=== PATIENT | female | born 1935 | race Caucasian/White ===

== ENCOUNTER 2018-05-18 19:00 | Inpatient (IN) | payer MEDICARE ==
--- OUTSIDE RECORDS SUMMARY | 2018-05-18 20:19 | XMS REPORT ---
:1935 External Reference #:[id number] Author Organization [facility] Address [address] [place] [address] Phone [phone] Care Team Providers Name Role Phone Tino Mi MD Primary Care Physician Unavailable Payers Type Date Identification Numbers Payment Provider Subscriber Health Maintenance Effective: Policy Number: Medicare [facility] ([facility]) 10/31/2012 [id number] [facility] Group Number: [id number] [address] [address] PayID: [id number] [place] [address] Problems Date Description Provider Status Onset: 01/14/2014 Palpitations Dylan Pantoja M.D., [facility], Active FASJANICE Onset: 01/14/2014 Atrial fibrillation Dylan Pnatoja M.D., [facility], Active FASNC Onset: 05/08/2018 Chronic atrial fibrillation Dylan Pantoja M.D., [facility], Active FASNC Onset: 03/07/2017 Chest pain Dylan Pantoja M.D., [facility], Active FASNC Social History Type Date Description Comments Marital Status Single Lives With Alone Occupation [employer] Cigarette Use Never Smoked Cigarettes ETOH Use Denies alcohol use Smoking Patient has never smoked Recreational Drug Use Denies Drug Use Daily Caffeine Does Not Consume Caffeine Exercise Type/Frequency Does not exercise General Hx Text Follow special diet: No redmeat Problems snoring , daytime fatigue: yes fatigue during the day some days. Allergies, Adverse Reactions, Alerts Date Description Reaction Status Severity Comments 01/14/2014 Sulfa Antibiotics active 01/14/2014 Liver vomiting active Medications Medication Date Status Form Strength Qnty SIG Indications Ordering Provider Metoprolol Active Tablets ER 100mg 90tabs 1 by Dylan Ngo Succinate ER 015 24HR mouth Pantoja, every day M.D., FACC, MALENANC Xarelto Active Tablets 20mg 90tabs 1 by Dylan Ngo 013 mouth Pantoja, every day M.D., FAC, FASJANICE Proventil HFA Active Aerosol 108(90Base 6.700g 2 puffs Unknown 000 ) mcg/Act m prn Metoprolol Hx Tablets ER 100mg 90tabs 1 by Dylan Ngo Succinate ER 014 - 24HR mouth Pantoja, every day M.D., 015 along FACC, with a FASNC 25mg tab Metoprolol Hx Tablets ER 25mg 90tabs 1 by Dylan Ngo Succinate ER 014 - 24HR mouth Pantoja, every day M.D., 015 along FACC, with a FASNC 100mg tab Pradaxa Hx Capsules 150mg 180cap 1 cap by Dylan Ngo 013 - s mouth Pantoja, twice a M.D., 013 day FACC, FASNC Metoprolol Hx Tablets ER 50mg 225tab take 2 Dylan Ngo Succinate ER 012 - 24HR s and 11/01 Kit, tablets M.D., 014 by mouth FACC, daily FASNC Metoprolol Hx Tablets ER 100mg 90tabs 1 po qd Dylan Ngo Succinate ER 012 - 24HR Kit, M.D., 012 FAC, FASNC Klor-Con M20 Hx Tablets ER 20Meq 60tabs 2 po qd Dylan Ngo 012 - Pantoja, M.D., 014 [facility], [facility] Medications Administered in Office Medication Date Status Form Strength Qnty SIG Indications Ordering Provider Inj, 04/07/ Administered Injection Leroy D. Regadenoson, 0.1 2016 Brand, MG M.D. Technetium TC 04/07/ Administered Injection Leroy Pagan 99M Tetrofosmin, 2017 Brand, Per Unit Dose Up M.D. To 40 Millicuries Technetium TC 04/04/ Administered Injection Dylan Ngo 99M Tetrofosmin, 2016 Kit, Per Unit Dose Up M.D., To 40 FACC, Yareliuries FASNC Inj, 05/27/ Administered Injection Dylan Ngo Regadenoson, 0.1 2014 Kit MG M.D., FACC, FASNC Inj, 05/27/ Administered Injection Ines Regadenoson, 0.1 2014 MG Eboni Friend.DTerri Aminophylline 05/27/ Administered Injection Ines 2014 Winifred Friend Technetium TC 05/27/ Administered Injection Dylan Ngo 99M Tetrofosmin, 2014 Kit, Per Unit Dose Up M.D., To 40 FACC, Frankieicuries MALENANC Technetium TC 05/26/ Administered Injection Dylan Ngo 99M Tetrofosmin, 2014 Kit, Per Unit Dose Up M.D., To 40 FACC, Yareliurifabby GUYNC Technetium TC 11/27/ Administered Injection Dylan Ngo 99M Tetrofosmin, 2012 Kit, Per Unit Dose Up M.D., To 40 FACC, Frankieicuries FASNC Vital Signs Date Vital Result Comment 05/08/2018 Height 63.5 inches 5'3.50" Weight 200.00 lb with shoes Heart Rate 80 /min BP Systolic Sitting 94 mmHg lue lg cuff BP Diastolic Sitting 52 mmHg lue lg cuff BP Systolic Standing 94 mmHg BP Diastolic Standing 52 mmHg Respiratory Rate 18 /min BMI (Body Mass Index) 34.9 kg/m2 Ejection Fraction 55-60% 03/29/2017 echo 04/12/2017 Height 63.5 inches 5'3.50" Weight 203.00 lb with shoes Heart Rate 92 /min BP Systolic Sitting 106 mmHg Rue large cuff BP Diastolic Sitting 62 mmHg Rue large cuff BP Systolic Standing 110 mmHg Rue BP Diastolic Standing 68 mmHg Rue BMI (Body Mass Index) 35.4 kg/m2 03/07/2017 Height 63.25 inches 5'3.25" Weight 203.50 lb with shoes Heart Rate 88 /min BP Systolic Sitting 102 mmHg Rue reg cuff BP Diastolic Sitting 62 mmHg Rue reg cuff BP Systolic Standing 108 mmHg Rue reg cuff BP Diastolic Standing 64 mmHg Rue reg cuff Respiratory Rate 17 /min BMI (Body Mass Index) 35.8 kg/m2 Ejection Fraction 50-55% 02/02/2016-echo 02/09/2016 Height 63.25 inches 5'3.25" Weight 205.00 lb with shoes BP Systolic Sitting 110 mmHg LA reg cuff BP Diastolic Sitting 66 mmHg LA reg cuff BP Systolic Standing 124 mmHg LA reg cuff BP Diastolic Standing 66 mmHg LA reg cuff BMI (Body Mass Index) 36.0 kg/m2 Ejection Fraction 50-55% date 02/02/16 ECHO 05/28/2015 Height 63.25 inches 5'3.25" Weight 201.00 lb with shoes Heart Rate 90 /min irreg BP Systolic Sitting 110 mmHg Ra reg cuff BP Diastolic Sitting 60 mmHg Ra reg cuff BP Systolic Standing 110 mmHg Ra reg cuff BP Diastolic Standing 70 mmHg Ra reg cuff Respiratory Rate 17 /min BMI (Body Mass Index) 35.3 kg/m2 Ejection Fraction 50-55% date 02/11/15 ECHO 01/13/2015 Height 63.25 inches 5'3.25" Weight 204.31 lb with shoes Heart Rate 104 /min BP Systolic Sitting 110 mmHg LA BP Diastolic Sitting 76 mmHg LA BP Systolic Standing 108 mmHg LA BP Diastolic Standing 70 mmHg LA Respiratory Rate 16 /min BMI (Body Mass Index) 35.9 kg/m2 01/14/2014 Height 64.25 inches 5'4.25" Weight 207.50 lb with shoes Heart Rate 56 /min BP Systolic Sitting 110 mmHg Ra reg cuff BP Diastolic Sitting 52 mmHg Ra reg cuff BP Systolic Standing 100 mmHg Ra reg cuff BP Diastolic Standing 60 mmHg Ra reg cuff Respiratory Rate 16 /min BMI (Body Mass Index) 35.3 kg/m2 Results Description No Information Procedures Date CPT Code Description Status 05/08/2018 91728 EKG Tracing & Interpretation Completed 04/07/2017 14255 Stress Test Completed 04/07/2017 95650 Myocardial Perfusion Imaging Tomographic (Spect) Completed Multiple Studies 03/29/2017 28695 ECHO Transthoracic, Real-Time 2D With Doppler And Color Completed Flow 03/07/2017 67895 EKG Tracing & Interpretation Completed 02/09/2016 76806 EKG Tracing & Interpretation Completed 02/02/2016 21053 ECHO Transthoracic, Real-Time 2D With Doppler And Color Completed Flow 05/27/2015 05622 Stress Test Completed 05/27/2015 67002 Myocardial Perfusion Imaging Tomographic (Spect) Completed Multiple Studies 05/27/2015 50470 Myocardial Perfusion Imaging Tomographic (Spect) Completed Multiple Studies 02/11/2015 66173 ECHO Transthoracic, Real-Time 2D With Doppler And Color Completed Flow 01/23/2015 34912 Holter Monitoring 24 HR New Completed 01/13/2015 69858 EKG Tracing & Interpretation Completed 12/03/2013 58520 ECHO Transthoracic, Real-Time 2D With Doppler And Color Completed Flow 11/27/2012 83787 Stress Test Completed 11/27/2012 94299 Myocardial Perfusion Imaging Tomographic (Spect) Completed Multiple Studies 11/21/2012 85440 Carotid Doppler,Bilateral Completed 09/19/2012 20818 EKG Tracing & Interpretation Completed 09/04/2012 26867 EKG, Interpretation Only Completed 09/04/2012 25126 EKG, Interpretation Only Completed Encounters Type Date Location Provider CPT E/M Dx Office Visit 05/08/2018 [facility] Ngo Apntoja, 54375 I48.2 1:00p Max Vitale, JUANIS, SEVERO Office Visit 04/12/2017 [facility] Dylan Ngo Pantoja, 80586 R07.9 2:15p Max Vitale, JUANIS, [facility] I48.2 Office Visit 03/07/2017 11:15a [facility] Dylanjena Ngo Pantoja, 80425 R07.9 Courtroom Clerk Winifred, FACAntolin, [facility] I48.2 Office Visit 02/09/2016 11:30a [facility] Dylan Ngo Pantoja, 28565 I48.91 Courtroom Clerk Winifred[facility] 05/28/2015 11:15a [facility] Dylan Ngo Pantoja, 94377 427.31 Max Vitale, [facility]olin, [facility] Visit 01/13/2015 1:00p [facility] Dylan Huber Pantoja, 33451 427.31 Courtroom Clerk Winifred, [facility]ACC, [facility] Office Visit 09/17/2014 2:19p [facility], Cailin Arenas, 03633 780.4 Hospitalists M.Latasha 386.12 427.31 Office Visit 09/15/2014 2:18p [facility], Cailin Arenas, 64503 780.4 Hospitalists M.DTerri 386.12 427.31 Office Visit 01/14/2014 11:30a [facility] Dylanjena Pantoja, 70824 785.1 Max Vitale, FACAntolin, [facility] 427.31 Office Visit 06/04/2013 11:15a [facility] Dylan Pantoja, 81477 427.81 Courtroom Clerk Winifred, FAC, FASFL Office Visit 12/04/2012 3:00p [facility] Dylan Pantoja, 07882 427.31 Courtroom Clerk Winifred, FAC, FASFL Office Visit 11/02/2012 11:30a [facility] Dylan Pantoja, 44685 427.31 Courtroom Clerk Winifred, FAC, FASFL Office Visit 09/19/2012 11:30a [facility] Dylan Pantoja, 18508 427.31 Courtroom Clerk Winifred, FAC, [facility] Office Visit 09/04/2012 9:58a [facility] Jorge Felix, 23875 427.31 Hospitalists M.DTerri 401.9 Office Visit 09/03/2012 9:55a [facility] Anahi Salinas, 34521 427.31 Assoc, Hospitalists MTerriDTerri 401.9 Office Visit 03/29/2010 2:15a [facility] Yue Molina M.D. 48463 486 Hospitalists 427.31 Office Visit 03/28/2010 1:30a [facility] Yue Molina M.D. 16211 486 Hospitalists 427.31 Office Visit 03/27/2010 2:15a [facility] Cailin Arenas, 33319 486 Hospitalists M.DTerri 427.31 Office Visit 03/26/2010 1:45a [facility] Cailin Arenas, 52315 486 Hospitalists M.DTerri 427.31 Office Visit 03/25/2010 1:00a [facility] Cailin Arenas, 19518 486 Hospitalists M.DTerri 427.31 Office Visit 03/24/2010 1:15a [facility] Anahi Salinas, 17241 427.31 Assoc, Hospitalists M.D. Office Visit 03/24/2010 1:30a [facility] Cailin Arenas, 10179 486 Assoc, Hospitalists M.D. Office Visit 03/23/2010 3:[facility]a [facility], 32803 786.59 Assoc,pc Hospitalists Winifred 486 Plan of Care Future Appointment(s):05/11/2018 11:30 am - Mil Montoya MD at [facility]05/08/2018 - Dylan Pantoja M.D., [facility], ACNWQO37.2 Chronic atrial fibrillationComments:As discussed, I feel your heart is doing well. Please exercise as able.Follow up:one year
--- OUTSIDE RECORDS SUMMARY | 2018-05-18 20:19 | XMS REPORT ---
:1935 External Reference #:[id number] Author Organization [facility] Address [address] [place] [address] Phone [phone] Care Team Providers Name Role Phone Tino Mi MD Care Team Information Bar Turner Unavailable Tino Mi MD Primary Care Physician Unavailable Payers Type Date Identification Numbers Payment Provider Subscriber Commercial Policy Number: [id number] Medicare Blue Ppo Cecy Francis Group Number: [id number] [address] [address] Group Name: [place] [address] PayID: [id number] Problems Date Description Provider Status Onset: 07/31/2011 Skin sensation disturbance Tino Mi M.D. Active Onset: 12/30/2011 Asthma without status asthmaticus Tino Mi M.D. Active Onset: 12/30/2011 Atrial fibrillation Tino Mi M.D. 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 Active Onset: 08/30/2014 Fever Wero Mendiola M.D. Active Onset: 10/22/2014 Osteochondropathy Tino Mi M.D. Active Onset: 10/22/2014 Otolith disease Tino Mi M.D. 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 Active Onset: 11/16/2016 Spontaneous ecchymosis Sterling Hanna M.D. Active Onset: 11/16/2016 Paroxysmal atrial fibrillation Sterling Hanna M.D. Active Onset: 11/16/2016 Abscess of finger Sterling Hanna M.D. Active Onset: 03/22/2017 Persistent atrial fibrillation Tino Mi M.D. Active Onset: 03/22/2017 Disorder of bone Tino Mi M.D. Active Onset: 03/22/2017 Chest pain Tino Mi M.D. Active Onset: 03/22/2017 Inflamed seborrheic keratosis Tino Mi M.D. Active Onset: 03/22/2017 Rosacea Tino Mi M.D. Active Onset: 03/22/2017 Screening for malignant neoplasm of Tino Mi M.D. Active colon Onset: 03/22/2017 Adult health examination Tino Mi M.D. Active Onset: 03/22/2017 Benign paroxysmal positional vertigo Tino Mi M.D. 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, stressful Cigarette Use Never Smoked Cigarettes ETOH Use Denies alcohol use Smoking Patient has never smoked Daily Caffeine Does not consume caffeine Exercise Type/Frequency Does not exercise currently Current Allergies, Adverse Reactions, Alerts Date Description Reaction Status Severity Comments 04/03/2010 Sulfa active 04/03/2010 Liver active 04/03/2010 Cigarette Smoke active 03/09/2011 Seasonal active Medications Medication Date Status Form Strength Qnty SIG Indications Ordering Provider Tramadol HCL 05/16 Active Tablets 50mg 30tab 1-2 by mouth s every 6 [place], hours as Afnp-C needed for pain Handicap 10/31 Active needed due Tino Looney Parking Permit to: Shmuel arthritis M.D. Metoprolol 12/29 Active Tablets 100mg 1 po qd Family Succinate ER [facility] Oxygen Therapy 05/23 Active 2 liters, Tino F. /2010 prn Winifred Mi Proventil HFA 11/18 Active Aerosol 108(90Bas 6.7un inhale two Tino F. /2010 e) its puffs by Shmuel, mcg/Act mouth every M.D. 4 hours as needed Xarelto Active Tablets 20mg 1 po qd Unknown /0000 Amoxicillin/Cla 02/01 Hx Tablets 875-125mg 14tab 1 by mouth J18.9 Wero bernabe s twice a day Marcie Serrano - 05/16 Risedronate 06/15 Hx Tablets 150mg 4tabs take 1 Tino F. Sodium tablet by Shmuel, - mouth every M.D. Metrogel 03/22 Hx Gel 1% 55gm apply 1 Tino F. application Shmuel, - topically to M.D. 05/16 affected area daily for acne of unknown cause usually in older age groups Phisohex 04/30 Hx Liquid 3% 473un Use Tino F. its Topically as Shmuel, - Needed M.D. 03/10 Handicap 04/05 Hx needed due Tino F. Parking Permit to: Shmuel - arthritis M.D. 06/20 Meclizine HCL 10/02 Hx Tablets 25mg 40tab 1 by mouth s three times Brown, NICK SETTER - a day as 03/22 needed Metronidazole 04/19 Hx Gel 0.75% 1tube apply to 706.1 affected Brown, NICK SETTER - facial areas 08/30 daily after washing face Microlet 2 03/02 Hx 1Box for glucose Tracie Lancets testing qd Osvaldo, - Afnp-C 07/04 Glucose Test 03/02 Hx 1Box for checking Tracie Strips blood Osvaldo, Contour - glucose qd Afnp-C 11/07 Metoprolol 03/09 Hx Tablets 50mg 30tab 1 po qd Tino F. Succinate ER ER 24HR s Nelia Mi M.D. 12/29 Levaquin 11/18 Hx Tablets 500mg 7tabs 1 po qd x 7 466.0 days Gabriella - Afnp-C 11/25 Tessalon 11/18 Hx Capsules 200mg 30cap 1 tid prn 466.0 s cough Gabriella, - Afnp-C 11/25 Phisohex 04/17 Hx Liquid 3% 473ml use Tino FTerri /2009 topically Shmuel - marissa M.DTerri 08/30 Levaquin 04/03 Hx Tablets 500mg 7tabs 1 po qd x 7 482.9 days Kavitha, - [employer] 04/10 Metoprolol Hx Tablets 50mg 30tab 1 po qd Unknown Succinate /0000 ER 24HR s - 03/09 Warfarin Sodium Hx Tablets 2mg 100ta take as Tino F. /0000 Nelia Iniguez M.D. 11/18 Aspirin Hx Tablets 81mg 90tab 1 po qd Tino F. /0000 Nelia Angeles M.D. 11/07 Pradaxa 00 Hx Capsules take 1 Unknown /0000 capsule by - mouth 2 01/15 times a day /2013 Metoprolol 00 Hx Tablets 25mg 1 po qd Family Succinate ER / ER [facility] Immunizations CPT Code Status Date Vaccine Lot # [id number] Given 03/11/2011 Tdap Tetanus, W Pertussis Vital Signs Date Vital Result Comment 05/16/2018 BP Systolic 110 mmHg BP Diastolic 62 mmHg Heart Rate 90 /min Body Temperature 98.0 F Respiratory Rate 17 /min Height 61.5 inches 5'1.50" Weight 197.00 lb BMI (Body Mass Index) 36.6 kg/m2 02/01/2018 BP Systolic 138 mmHg BP Diastolic 60 mmHg Heart Rate 108 /min Body Temperature 97.7 F Respiratory Rate 18 /min O2 % BldC Oximetry 96 % Height 61.5 inches 5'1.50" Weight 204.00 lb BMI (Body Mass Index) 37.9 kg/m2 03/22/2017 BP Systolic 102 mmHg BP Diastolic 60 mmHg Heart Rate 76 /min Body Temperature 98.2 F Respiratory Rate 16 /min Height 61.5 inches 5'1.50" Weight 204.00 lb BMI (Body Mass Index) 37.9 kg/m2 11/16/2016 BP Systolic 116 mmHg BP Diastolic 70 mmHg Heart Rate 90 /min Body Temperature 98.6 F Respiratory Rate 16 /min Height 61.5 inches 5'1.50" Weight 208.12 lb BMI (Body Mass Index) 38.7 kg/m2 03/10/2016 BP Systolic 118 mmHg BP Diastolic 62 mmHg Heart Rate 90 /min Body Temperature 98.2 F Respiratory Rate 18 /min O2 % BldC Oximetry 98 % Height 61.5 inches 5'1.50" Weight 204.00 lb BMI (Body Mass Index) 37.9 kg/m2 06/20/2015 BP Systolic 112 mmHg BP Diastolic 52 mmHg Heart Rate 100 /min Irr Body Temperature 98.3 F Height 61.5 inches 5'1.50" Weight 201.00 lb BMI (Body Mass Index) 37.4 kg/m2 10/22/2014 BP Systolic 120 mmHg BP Diastolic 80 mmHg Heart Rate 64 /min Body Temperature 98.2 F Respiratory Rate 18 /min Height 61.5 inches 5'1.50" Weight 205.00 lb BMI (Body Mass Index) 38.1 kg/m2 08/30/2014 BP Systolic 134 mmHg BP Diastolic 80 mmHg Heart Rate 92 /min Body Temperature 99.4 F Respiratory Rate 20 /min O2 % BldC Oximetry 98 % Height 62 inches 5'2" 04/19/2014 BP Systolic 116 mmHg BP Diastolic 60 mmHg Heart Rate 60 /min Body Temperature 97.2 F Respiratory Rate 16 /min Height 62 inches 5'2" Weight 207.38 lb BMI (Body Mass Index) 37.9 kg/m2 01/15/2014 BP Systolic 134 mmHg BP Diastolic 68 mmHg Heart Rate 60 /min Body Temperature 98.0 F Respiratory Rate 18 /min Height 62 inches 5'2" Weight 208.12 lb BMI (Body Mass Index) 38.1 kg/m2 07/04/2013 BP Systolic 126 mmHg BP Diastolic 66 mmHg Heart Rate 60 /min Body Temperature 97.9 F Respiratory Rate 16 /min Height 62 inches 5'2" Weight 205.00 lb BMI (Body Mass Index) 37.5 kg/m2 11/07/2012 BP Systolic 122 mmHg BP Diastolic 82 mmHg Heart Rate 72 /min Body Temperature 98.0 F Height 62 inches 5'2" Weight 201.00 lb BMI (Body Mass Index) 36.8 kg/m2 03/02/2012 BP Systolic 110 mmHg BP Diastolic 72 mmHg Heart Rate 76 /min Body Temperature 98.7 F Height 62 inches 5'2" Weight 206.00 lb BMI (Body Mass Index) 37.7 kg/m2 12/30/2011 BP Systolic 120 mmHg BP Diastolic 54 mmHg Heart Rate 56 /min Body Temperature 98.5 F Height 62 inches 5'2" Weight 206.00 lb BMI (Body Mass Index) 37.7 kg/m2 05/20/2011 BP Systolic 104 mmHg BP Diastolic 60 mmHg Heart Rate 60 /min Height 62 inches 5'2" Weight 200.00 lb BMI (Body Mass Index) 36.6 kg/m2 04/02/2011 BP Systolic 110 mmHg BP Diastolic 70 mmHg Heart Rate 72 /min Respiratory Rate 15 /min Height 62 inches 5'2" Weight 200.00 lb BMI (Body Mass Index) 36.6 kg/m2 03/09/2011 BP Systolic 118 mmHg BP Diastolic 60 mmHg Heart Rate 58 /min Body Temperature 97.9 F Respiratory Rate 20 /min Height 62 inches 5'2" Weight 200.00 lb BMI (Body Mass Index) 36.6 kg/m2 11/18/2010 BP Systolic 126 mmHg BP Diastolic 66 mmHg Heart Rate 76 /min Body Temperature 97.6 F O2 % BldC Oximetry 96 % Height 62 inches 5'2" Weight 199.00 lb BMI (Body Mass Index) 36.4 kg/m2 04/10/2010 BP Systolic 120 mmHg BP Diastolic 58 mmHg Heart Rate 60 /min Body Temperature 98.6 F Respiratory Rate 16 /min Weight 193.00 lb 04/03/2010 BP Systolic 122 mmHg BP Diastolic 54 mmHg Heart Rate 60 /min Body Temperature 98.3 F Respiratory Rate 16 /min Height 62 inches 5'2" Weight 191.00 lb BMI (Body Mass Index) 34.9 kg/m2 Results Test Date Test Result H/L Range Note Comprehensive Metabolic Prof 03/22/2017 Sodium 140 mEq/L 134-149 Potassium 4.6 mEq/L 3.6-5.5 Chloride 100 mEq/L 94-112 Carbon Dioxide 28 mEq/L 21-32 Glucose 135 mg/dL High 70-105 1 BUN 20 mg/dL 6-26 Creatinine 0.8 mg/dL 0.6-1.4 BUN/Creat Ratio 25.0 CALC 8.0-36.0 Calcium 9.7 mg/dL 8.6-10.2 Total Protein 6.9 g/dL 6.4-8.3 Albumin 4.2 g/dL 3.8-5.5 Globulin 2.7 g/dL 2.0-4.8 A/G Ratio 1.6 CALC 0.6-2.3 Alk. Phosphatase 81 U/L 30-110 Alt (SGPT) 16 U/L 7-35 Ast (Sgot) 19 U/L 5-34 Total Bilirubin 0.5 mg/dL 0.2-1.3 GFR Non- >60 ml/min/1.73m^ >=60 GFR >60 ml/min/1.73m^ >=60 Laboratory test finding 03/22/2017 Free T4 0.73 ng/dL Low 0.75-1.54 2 TSH 2.59 mIU/L 0.50-6.00 Lipid Profile 03/22/2017 Cholesterol 189 mg/dL 120-200 Triglycerides 180 mg/dL 30-200 HDL Cholesterol 49 mg/dL 30-85 LDL (Calculated) 104 CALC 0-129 VLDL Cholesterol 36 mg/dL 0-50 HDL Risk Factor 3.9 CALC 0.0-4.4 CBC Electronic (a) 03/22/2017 WBC 7.4 3.6-9.6 RBC 4.48 3.90-5.70 Hemoglobin (Fma/CMC/CTX) 13.9 g/dL 12.1 - 17.2 Hematocrit (Fma/CMC/CTX) 42.0 % 36.1 - 50.3 Platelets 217 10^3/ul 150-400 Lymph% 27.6 % 17.0-48.0 Mixed% 7.4 Neutrophils % 65.0 Mean Corpuscular Vol 94 82.2-97.4 Mean Corpuscular Hemoglobin 31.1 27.6-33.3 Mean Corpuscular Hemo Concen 33.1 32.0-36.0 RDW 13.4 11.6-13.7 Mean Platelet Volume 7.9 5.5-11.0 Basic Metabolic Profile 11/04/2015 Sodium 142 mEq/L 134-149 Potassium 4.5 mEq/L 3.6-5.5 Chloride 100 mEq/L 94-112 Carbon Dioxide 31 mEq/L 21-32 Glucose 122 mg/dL High 70-105 BUN 17 mg/dL 6-26 Creatinine 0.9 mg/dL 0.6-1.4 BUN/Creat Ratio 18.9 CALC 8.0-36.0 Calcium 9.7 mg/dL 8.6-10.2 GFR Non- >60 ml/min/1.73m^ >=60 GFR >60 ml/min/1.73m^ >=60 Laboratory test finding 10/22/2014 Vitamin D25 16 Low 30-100 Lipid Profile 10/22/2014 Cholesterol 176 mg/dL 120-200 Triglycerides 133 mg/dL 30-200 HDL Cholesterol 48 mg/dL 30-85 LDL (Calculated) 101 CALC 0-129 VLDL Cholesterol 27 mg/dL 0-50 HDL Risk Factor 3.7 CALC 0.0-4.4 Laboratory test finding 10/22/2014 Free T4 0.84 ng/dL 0.75-1.54 Ua - Non Micro (Fma) 10/22/2014 Appearance CLEAR Color YELLOW Glucose, Urine (Fma/CMC/CTX) NEG Bilirubin NEG Ketones NEG SP Grav 1.025 Blood NEG PH 6.0 Protein NEG Urobil 0.2 Nitrite NEG Leukocytes (Fma/CMC/Centrex) NEG CBC Auto Diff 09/15/2014 White Blood Count 7.3 10^3/uL 4.8-10.8 Red Blood Count 4.61 10^6/uL 4.0-5.4 Hemoglobin 13.8 g/dL 12.0-16.0 Hematocrit 43 % 35-47 Mean Corpuscular Volume 93 fL 80-97 Mean Corpuscular Hemoglobin 30 pg 27-31 Mean Corpuscular HGB Conc 32 g/dL 31-36 Red Cell Distribution Width 13 % 10.5-15 Platelet Count 204 10^3/uL 150-450 Mean Platelet Volume 9 um3 7.4-10.4 Abs Neutrophils 4.7 10^3/uL 1.5-7.7 Abs Lymphocytes 1.9 10^3/uL 1.0-4.8 Abs Monocytes 0.6 10^3/uL 0-0.8 Abs Eosinophils 0.1 10^3/uL 0-0.6 Abs Basophils 0.1 10^3/uL 0-0.2 Abs Nucleated RBC 0 10^3/uL Granulocyte % 63.9 % 38-83 Lymphocyte % 25.4 % 25-47 Monocyte % 8.3 % 1-9 Eosinophil % 1.5 % 0-6 Basophil % 0.9 % 0-2 Nucleated Red Blood Cells % 0.1 Comp Metabolic Panel 09/15/2014 Sodium 138 mmol/L 133-145 Potassium 3.9 mmol/L 3.5-5.0 3 Chloride 103 mmol/L 101-111 Co2 Carbon Dioxide 26 mmol/L 22-32 Anion Gap 9 mmol/L 2-11 Glucose 174 mg/dL High 70-100 Blood Urea Nitrogen 12 mg/dL 6-24 Creatinine 0.84 mg/dL 0.51-0.95 BUN/Creatinine Ratio 14.3 8-20 Calcium 9.2 mg/dL 8.6-10.3 Total Protein 7.0 g/dL 6.4-8.9 Albumin 3.7 g/dL 3.2-5.2 Globulin 3.3 g/dL 2-4 Albumin/Globulin Ratio 1.1 1-3 Total Bilirubin 0.80 mg/dL 0.2-1.0 Alkaline Phosphatase 68 U/L 34-104 Alt 10 U/L 7-52 Ast 16 U/L 13-39 Egfr Non- 65.1 >60 Egfr 83.7 >60 4 Laboratory test finding 09/15/2014 Magnesium 2.0 mg/dL 1.9-2.7 Troponin I 0.00 ng/mL <0.03 5 TSH (Thyroid Stimulating Horm) 2.40 IU/mL 0.34-5.60 Inr/Protime 09/15/2014 Inr 1.24 High 0.85-1.06 Laboratory test finding 09/15/2014 Activated Partial 31.2 seconds 24.0- 36.1 Thrombo Time Basic Metabolic Profile 06/15/2014 Sodium 136 mEq/L 134-149 Potassium 4.1 mEq/L 3.6-5.5 Chloride 100 mEq/L 94-112 Carbon Dioxide 27 mEq/L 21-32 Glucose 149 mg/dL High 70-105 BUN 14 mg/dL 6-26 Creatinine 0.8 mg/dL 0.6-1.4 BUN/Creat Ratio 17.5 CALC 8.0-36.0 Calcium 9.4 mg/dL 8.6-10.2 CBC Electronic (Fma) 06/15/2014 WBC 6.3 3.6-9.6 RBC 4.68 3.90-5.70 Hemoglobin (Fma/CMC/CTX) 13.9 g/dL 12.1 - 17.2 Hematocrit (Fma/CMC/CTX) 43.0 % 36.1 - 50.3 Platelets 190 10^3/ul 150-400 Lymph% 29.3 % 17.0-48.0 Mixed% 5.4 Neutrophils % 65.3 Mean Corpuscular Vol 92 82.2-97.4 Mean Corpuscular Hemoglobin 29.8 27.6-33.3 Mean Corpuscular Hemo Concen 32.4 32.0-36.0 RDW 13.7 11.6-13.7 Mean Platelet Volume 7.3 5.5-11.0 Complete Blood Count 01/15/2014 WBC 5.3 x10^3/UL 3.6-9.6 RBC 4.29 x10^6/UL 3.90-5.70 HGB 12.8 g/dL 12.1-17.2 HCT 39 % 36-50 MCV 92.0 fL 82.2-97.4 MCH 29.8 pg 27.6-33.3 MCHC 32.5 g/dL Low 33.0-35.5 RDW 11.9 % 11.6-13.7 PLT 206 x10^3/UL 150-400 MPV 8.8 fL 7.4-10.4 Gran # 3.7 x10^3/UL 1.5-7.2 Lymph# 1.3 x10^3/UL 0.7-4.9 [place]# 0.3 x10^3/UL 0.1-0.9 Gran % 68.6 % 42.2-75.2 Lymph % 24.7 % 20.5-51.1 [place]% 6.7 % 1.7-9.3 Comprehensive Metabolic Prof 11/07/2012 Albumin 4.7 g/dL 3.8-5.5 Alk. Phos. 78 U/L 30-110 Alt (SGPT) 11 U/L 7-35 Ast (Sgot) 21 U/L 5-34 BUN 15 mg/dL 6-26 Calcium 9.0 mg/dL 8.6-10.2 Chloride 102 mEq/L 94-112 Creatinine 0.8 mg/dL 0.6-1.4 Carbon Dioxide 25 mEq/L 21-32 Glucose 153 mg/dL High 70-105 6 Sodium 138 mEq/L 134-149 Total Bilirubin 0.3 mg/dL 0.2-1.3 Total Protein 7.2 g/dL 6.3-8.1 Potassium 3.6 mEq/L 3.6-5.5 Globulin 2.6 g/dL 2.0-4.8 A/G Ratio 1.8 Calc 0.6-2.3 BUN/Creat Ratio 19.3 Calc 8.0-36.0 Laboratory test finding 11/07/2012 Free T4 0.82 ng/dL 0.75-1.54 TSH 2.10 mIU/L 0.50-6.00 Magnesium 2.0 mEq/L 1.2-2.1 CBC Electronic ([facility]) 11/07/2012 WBC 7.3 3.6-9.6 RBC 4.66 3.90-5.70 Hemoglobin (Fma/CMC/CTX) 13.9 g/dL 12.1 - 17.2 Hematocrit (a/CMC/CTX) 42.5 % 36.1 - 50.3 Platelets 238 10^3/ul 150-400 Lymph% 26.6 20.5-51.1 Mixed% 6.0 Neutrophils % 67.4 Mean Corpuscular Vol 91 82.2-97.4 Mean Corpuscular Hemoglobin 29.8 27.6-33.3 Mean Corpuscular Hemo Concen 32.6 32.0-36.0 RDW 13.4 11.6-13.7 Mean Platelet Volume 7.4 6.5-11.0 CBC Auto Diff 09/03/2012 White Blood Count 8.2 10^3/uL 4.8-10.8 Red Blood Count 4.59 10^6/uL 4.0-5.4 Hemoglobin 14.5 g/dL 12.0-16.0 Hematocrit 42 % 35-47 Mean Corpuscular Volume 92 fL 80-97 Mean Corpuscular Hemoglobin 32 pg High 27-31 Mean Corpuscular HGB Conc 34 g/dL 31-36 Red Cell Distribution Width 13 % 10.5-15 Platelet Count 209 10^3/uL 150-450 Mean Platelet Volume 9 um3 7.4-10.4 Abs Neutrophils 4.8 10^3/uL 1.5-7.7 Abs Lymphocytes 2.4 10^3/uL 1.0-4.8 Abs Monocytes 0.7 10^3/uL 0-0.8 Abs Eosinophils 0.2 10^3/uL 0-0.6 Abs Basophils 0.1 10^3/uL 0-0.2 Abs Nucleated RBC 0 10^3/uL Granulocyte % 58.3 % 38-83 Lymphocyte % 29.2 % 25-47 Monocyte % 9.0 % 1-9 Eosinophil % 2.8 % 0-6 Basophil % 0.7 % 0-2 Nucleated Red Blood Cells % 0 Inr/Protime 09/03/2012 Inr 0.86 0.82-1.17 7 Laboratory test finding 09/03/2012 Activated Partial 30.7 Sec 22.18- 37.18 8 Thrombo Time Comp Metabolic Panel 09/03/2012 Sodium 138 mmol/L 133-145 Potassium 3.6 mmol/L 3.5-5.0 Chloride 104 mmol/L 101-111 Co2 Carbon Dioxide 27.0 mmol/L 22-32 Anion Gap 7.0 mmol/L 2-11 Glucose 182 mg/dL High 70-100 Blood Urea Nitrogen 15 mg/dL 6-24 Creatinine 0.70 mg/dL 0.50-1.40 BUN/Creatinine Ratio 21.4 High 8-20 Calcium 9.1 mg/dL 8.1-9.9 Total Protein 7.2 GM/DL 6.2-8.1 Albumin 3.8 GM/DL 3.2-5.2 Globulin 3.4 GM/DL 2-4 Albumin/Globulin Ratio 1.1 1-3 Total Bilirubin 0.6 mg/dL 0.1-1.0 9 Alkaline Phosphatase 82 U/L 30-110 Alt 16 U/L 14-54 Ast 25 U/L 12-42 Egfr Non- 80.7 >60 Egfr 103.8 >60 10 Laboratory test finding 09/03/2012 Magnesium 2.1 mg/dL 1.7-2.6 Creatine Kinase 86 U/L 0-200 CKMB 09/03/2012 CKMB In NG/ML 2.6 NG/ML 0.3-4.0 CKMB % 3.0 % 0-9 11 Laboratory test finding 09/03/2012 Troponin I 0 NG/ML 12 TSH (Thyroid Stimulating Horm) 1.99 MIU/ML 0.34-5.60 Comprehensive Metabolic Prof 02/07/2012 Albumin 4.3 g/dL 3.8-5.5 Alk. Phos. 88 U/L 30-110 Alt (SGPT) 13 U/L 7-35 Ast (Sgot) 17 U/L 5-34 BUN 12 mg/dL 6-26 Calcium 9.8 mg/dL 8.6-10.2 Chloride 101 mEq/L 94-112 Creatinine 0.8 mg/dL 0.6-1.4 Carbon Dioxide 24 mEq/L 21-32 Glucose 139 mg/dL High 70-105 13 Sodium 138 mEq/L 134-149 Total Bilirubin 0.6 mg/dL 0.2-1.3 Total Protein 7.0 g/dL 6.3-8.1 Potassium 4.3 mEq/L 3.6-5.5 Globulin 2.7 g/dL 2.0-4.8 A/G Ratio 1.6 Calc 0.6-2.2 BUN/Creat Ratio 14.9 Calc 8.0-36.0 Laboratory test finding 02/07/2012 Free T4 0.81 ng/dL 0.75-1.54 TSH 2.95 mIU/L 0.50-6.00 Lipid Profile 02/07/2012 Cholesterol 198 mg/dL 120-200 HDL 34 mg/dL 30-85 Triglycerides 142 mg/dL 30-200 HDL Risk Factor 5.8 CALC High 0.0-4.0 LDL (Calculated) 135 CALC High 0-129 VLDL (Calculated) 28 mg/dL 0-50 CBC Electronic (a) 02/07/2012 WBC 6.0 3.6-9.6 RBC 4.46 3.90-5.70 Hemoglobin (Fma/CMC/CTX) 13.6 g/dL 12.1 - 17.2 Hematocrit (Fma/CMC/CTX) 40.1 % 36.1 - 50.3 Platelets 228 10^3/ul 150-400 Lymph% 32.5 20.5-51.1 Mixed% 5.6 Neutrophils % 61.9 Mean Corpuscular Vol 90 82.2-97.4 Mean Corpuscular Hemoglobin 30.4 27.6-33.3 Mean Corpuscular Hemo Concen 33.9 32.0-36.0 RDW 11.5 Low 11.6-13.7 Mean Platelet Volume 8.6 6.5-11.0 Ua - Micro ([facility]) 03/25/2011 Appearance CLEAR Color YELLOW Glucose - Bilirubin - Ketones - SP Grav 1.030 Blood - PH 5.5 Protein - Urobil 0.2 Nitrite - Leukocytes (Fma/CMC/Centrex) TRACE Hyaline - /Lpf Granular - /Lpf WBC ([facility],Centrex) 2-3 RBC - Mucus - /Lpf Epith RARE /Lpf Bacteria RARE /Hpf Amorphous - /Lpf Crystals, Fluid (Fma/CMC/CTX) - Z#Comments - Comprehensive Metabolic Prof 03/11/2011 Albumin 4.3 g/dL 3.8-5.5 Alk. Phos. 70 U/L 30-110 Alt (SGPT) 11 U/L 7-35 Ast (Sgot) 17 U/L 5-34 BUN 13 mg/dL 6-26 Calcium 9.4 mg/dL 8.6-10.2 Chloride 98 mEq/L 94-112 Creatinine 0.8 mg/dL 0.6-1.4 Carbon Dioxide 30 mEq/L 21-32 Glucose 122 mg/dL High 70-105 14 Sodium 136 mEq/L 134-149 Total Bilirubin 0.7 mg/dL 0.2-1.3 Total Protein 7.0 g/dL 6.3-8.1 Potassium 4.2 mEq/L 3.6-5.5 Globulin 2.7 g/dL 2.0-4.8 A/G Ratio 1.6 Calc 0.6-2.2 BUN/Creat Ratio 16.2 Calc 8.0-36.0 Laboratory test finding 03/11/2011 Free T4 0.97 ng/dL 0.75-1.54 TSH 2.48 mIU/L 0.50-6.00 Lipid Profile 03/11/2011 Cholesterol 216 mg/dL High 120-200 HDL 48 mg/dL 30-85 Triglycerides 104 mg/dL 30-200 HDL Risk Factor 4.5 CALC High 0.0-4.0 LDL (Calculated) 147 CALC High 0-129 VLDL (Calculated) 21 mg/dL 0-50 CBC Electronic ([facility]) 03/11/2011 WBC 6.2 3.6-9.6 RBC 4.52 3.90-5.70 Hemoglobin (Fma/CMC/CTX) 13.7 g/dL 12.1 - 17.2 Hematocrit (Fma/CMC/CTX) 40.8 % 36.1 - 50.3 Platelets 217 10^3/ul 150-400 Lymph% 28.5 20.5-51.1 Mixed% 9.7 Neutrophils % 61.8 Mean Corpuscular Vol 90 82.2-97.4 Mean Corpuscular Hemoglobin 30.4 27.6-33.3 Mean Corpuscular Hemo Concen 33.6 32.0-36.0 RDW 12.2 11.6-13.7 Mean Platelet Volume 9.0 6.5-11.0 Laboratory test finding 03/11/2011 Testosterone, Serum 23 ng/dL 3-41 Ua - Micro (Fma) 03/09/2011 Appearance cloudy Color dk yellow Glucose - Bilirubin - Ketones trace SP Grav >1.030 Blood large PH 5.0 Protein - Urobil 0.2 Nitrite - Leukocytes (Fma/CMC/Centrex) small Hyaline - /Lpf Granular - /Lpf WBC (Fma,Centrex) 30-40 RBC 10-15 Mucus sm amt /Lpf Epith 2+ /Lpf Bacteria - /Hpf Amorphous - /Lpf Crystals, Fluid (Fma/CMC/CTX) - Laboratory test finding 09/04/2010 Inr (Fma) 2.5 2-3 Laboratory test finding 08/13/2010 Inr (Fma) 2.1 2.0-3.0 Laboratory test finding 07/30/2010 Inr (Fma) 2.1 2-3 Laboratory test finding 07/23/2010 Inr (Fma) 2.9 2.0-3.0 Laboratory test finding 07/16/2010 Inr (Fma) 2.8 2-3 Laboratory test finding 07/10/2010 Inr (Fma) 3.3 High 2-3 Laboratory test finding 07/03/2010 Inr (Fma) 3.4 High 2.0-3.0 Laboratory test finding 06/11/2010 Inr (Fma) 2.2 2-3 Laboratory test finding 05/28/2010 Inr (Fma) 2.2 2-3 Laboratory test finding 05/18/2010 Inr (Fma) 1.7 Low 2.0-3.0 Laboratory test finding 05/08/2010 Inr (Fma) 1.8 Low 2.0-3.0 Laboratory test finding 04/24/2010 Inr (Fma) 2.0 2.0-3.0 Laboratory test finding 04/17/2010 Inr (Fma) 1.8 Low 2.0-3.0 Laboratory test finding 04/10/2010 Inr (Fma) 1.9 Low 2.0-3.0 Laboratory test finding 04/06/2010 Inr (Fma) 1.8 Low 2.0-3.0 Laboratory test finding 04/03/2010 Inr (Fma) 2.2 2.0-3.0 1 NON-FASTING 2 RESULTS VERIFIED BY REPEAT ANALYSIS 3 Potassium reference range changed effective 09/01/14 4 Because ethnic data is not always readily available, this report includes an eGFR for both -Americans and non- Americans. The National Kidney Disease Education Program (NKDEP) does not endorse the use of the MDRD equation for patients that are not between the ages of 18 and 70, are , have extremes of body size, muscle mass, or nutritional status, or are non- or non-. According to the National Kidney Foundation, irrespective of diagnosis, the stage of the disease is based on the level of kidney function: Stage Description GFR(mL/min/1.73 m(2)) 1 Kidney damage with normal or decreased GFR 90 2 Kidney damage with mild decrease in GFR 60-89 3 Moderate decrease in GFR 30-59 4 Severe decrease in GFR 15-29 5 Kidney failure <15 (or dialysis) 5 Reference Range and Interpretation: TnI (ng/mL) Interpretation Less Than 0.03 ng/mL Not supportive of diagnosis of MA 0.03 - 0.50 ng/mL Indeterminate: suggest serial studies if clinically indicated. Greater than 0.5 ng/mL Consistent with diagnosis of MA 6 result tho'd 7 Effective July 31, 2012, in conjunction with the upgrade of the hospital information system, [facility] will release the International Normalized Ratio (INR) only. Patient reports will no longer contain prothrombin time (PT) results in seconds. This allows for consistency in patient evaluation and treatment. The INR was adopted by the World Health Organization (WHO) in 1983 as a standardized system of reporting PT. The Centers for Disease Control (CDC) states that reporting of PT results in INR only is the preferred method. Recommended INR for Patients on Oral Anticoagulants Prophylaxis 2.0 - 3.0 Treatment of thrombosis 2.0 - 3.0 Prevention of embolism 2.0 - 3.0 Prevention of embolism from prosthetic heart valves 2.5 - 3.5 8 Effective August 30, 2012 new APTT reference and therapeutic values have been implemented. 9 A metabolite of Naproxen, O-desmethylnaproxen, has been shown to interfere with the [place] method for measuring total bilirubin. Samples from patients who have taken Naproxen have shown spurious elevation in total bilirubin levels. 10 Because ethnic data is not always readily available, this report includes an eGFR for both -Americans and non- Americans. The National Kidney Disease Education Program (NKDEP) does not endorse the use of the MDRD equation for patients that are not between the ages of 18 and 70, are , have extremes of body size, muscle mass, or nutritional status, or are non- or non-. According to the National Kidney Foundation, irrespective of diagnosis, the stage of the disease is based on the level of kidney function: Stage Description GFR(mL/min/1.73 m(2)) 1 Kidney damage with normal or decreased GFR 90 2 Kidney damage with mild decrease in GFR 60-89 3 Moderate decrease in GFR 30-59 4 Severe decrease in GFR 15-29 5 Kidney failure <15 (or dialysis) 11 Interpretation %CK-MB; < 5% Not supportive of diagnosis of MA 5 - <10% Indeterminate; suggest serial studies 10% or > Consistent with diagnosis of MA 12 Reference Range and Interpretation: TnI (ng/ml) Interpretation Less Than 0.06 ng/mL Not supportive of diagnosis of MA 0.06 - 0.50 ng/ml Indeterminate: suggest serial studies if clinically indicated. Greater than 0.5 ng/mL Consistent with diagnosis of MA 13 CONSISTENT WITH PREVIOUS RESULTS 14 RESULT THO'D Procedures Date CPT Code Description Status 02/01/2018 57731 Pulse Oximetry Completed 04/25/2017 93128 Dxa Bone Density Study One Or More Sites Axial Skeleton Completed 04/21/2017 Mammogram Completed 03/22/2017 93968 Destruction Of Flat Warts Or Molluscum Contagiosum, Completed Milia To 15 03/10/2016 03397 Pulse Oximetry Completed 12/09/2014 Mammogram Completed 10/22/2014 70873 Electrocardiogram Complete Completed 04/21/2012 Mammogram Completed 02/29/2012 Bone Mineral Density Test Completed 03/26/2011 Mammogram Completed 03/09/2011 49478 Electrocardiogram Complete Completed 11/18/2010 43855 Pulse Oximetry Completed 09/04/2010 33853 Finger Or Heel Stick Completed 08/13/2010 21956 Finger Or Heel Stick Completed Encounters Type Date Location Provider CPT E/M Dx Office Visit 02/01/2018 4:30p [place] [address] J18.9 Office Visit 03/22/2017 2:20p Main Office Tino Mi M.D. 73639 I48.1 J45.998 M85.9 Z85.42 R07.89 L82.0 L71.8 Z12.11 H81.10 Z00.00 Office Visit 11/16/2016 8:00p Main Office Sterling Hanna M.D. 87370 R23.3 L02.512 I48.0 Office Visit 03/10/2016 3:30p Main [place] Georgina [place] [address] R05 Office Visit 06/20/2015 4:15p Main Office ANGEL Whitaker 29627 891.0 E917.3 Office Visit 10/22/2014 2:40p Main Office Tino Mi M.D. 87111 427.31 493.90 733.90 386.19 V10.44 790.6 V70.0 Office Visit 08/30/2014 3:00p Main Office Wero Mendiola M.D. 16537 780.60 Office Visit 04/19/2014 9:30a Main Office Georgina [place] [address] 706.1 Office Visit 01/15/2014 10:45a Main Office Janeen James 28424 920 E934.5 924.11 E888.1 Office Visit 07/04/2013 11:30a Main Office ANGEL Whitaker 97417 989.5 E905.3 Office Visit 11/07/2012 2:40p Main Office Tino Mi M.D. 23558 427.31 368.9 493.90 Office Visit 03/02/2012 10:45a Main Office Tracie RileyCris-C 70670 790.21 V65.8 Office Visit 12/30/2011 2:00p Main Office Tino Mi M.D. 39288 493.90 427.31 236.0 V76.41 Office Visit 05/20/2011 11:00a Main Office Tino Mi M.D. 50899 493.90 709.9 Office Visit 04/02/2011 10:40a Main Office Jewell Madrid M.D. 41729 782.0 Office Visit 03/11/2011 10:15a Main Office Tino Mi M.D. 33918 v06.5 915.0 Office Visit 03/09/2011 3:20p Main Office Tino Mi M.D. 48158 493.90 427.31 782.9 794.31 236.0 V72.83 V76.41 784.49 599.72 Office Visit 11/18/2010 9:00a Main Office Nichole QuirozCris-C 30241 466.0 709.9 Office Visit 04/10/2010 10:45a Main Office ANGEL Whitaker 20479 482.9 V58.61 Office Visit 04/03/2010 10:00a Main Office ANGEL Whitaker 01701 V58.61 427.31 482.9 Plan of Care 05/16/2018 - Tracie MejíaCris gallegos-CM54.5 Low back painNew Xrays:Lumbar Spine 2 Or 3 ViewsFollow up:Followup:. (Follow up)AllNew Medication:Tramadol HCL 50 mgComments:~B_~U_Medication Management~b_~u_ Patient Understands medications she 's taking? Yes No Are there Barriers to Adherence? Yes No Has the patient been asked about herbal supplements and therapies, and OTC meds? Yes No ~B_~U_Care Plan~b_~u_1. Patient has been queried about patient's goals/preferences and functional/lifestyle goals at relevant visits. If relevant, describe: na2. Treatment goals as explained to the patient: abovefurther eval and rx of pain 3. Are there barriers to meeting treatment goals? Yes No If Yes, please describe:4. Self-Management goals as described to the patient: Yes No continue conservative management ok for local heat, rest trialtramadol for pain , f/u pending test results
--- NOTE | 2018-05-18 20:21 | ED ---
Dizziness - HPI Summary HPI Summary: 80 y/o male presents to the ED c/o immediate onset R hip pain and swelling s/p fall while walking with a walker hours [employer] today. Pt fell onto her R side onto carpeted floor. No LOC. 6 days ago pt also developed bilateral hip pain radiating down the L leg, rated "25/10 in severity". Since then pain resolved slightly. Pt took a muscle relaxer earlier today and developed dizziness today. - History Of Current Complaint Chief Complaint: EDExtremityLower Stated Complaint: RT HIP PAIN Hx Obtained From: Patient Character: Dizzy Aggravating Factor(s): Nothing Alleviating Factor(s): Nothing Associated Signs And Symptoms: Positive: Other: - bilateral hip pain - Allergies/Home Medications Allergies/Adverse Reactions: Allergies Allergy/AdvReac Type Severity Reaction Status Date / Time Sulfa (Sulfonamide Allergy Unknown Verified 05/18/18 19:59 Antibiotics) Reaction Details liver-organ meat Allergy Unknown Uncoded 05/18/18 19:59 Reaction Details Home Medications: Home Medications Cyclobenzaprine (NF) [Cyclobenzaprine 5 MG (NF)] 5 mg PO BID PRN 05/18/18 [ History Confirmed 05/18/18] Ivermectin [Soolantra] 1 % TOPICAL DAILY 05/18/18 [History Confirmed 05/18/18] Metoprolol Succinate XL TAB* [Toprol XL TAB*] 100 mg PO DAILY 05/18/18 [History Confirmed 05/18/18] Rivaroxaban TAB(*) [Xarelto 20 mg] 20 mg PO DAILY 05/18/18 [History Confirmed ] traMADol TAB* [Ultram*] 50 - 100 mg PO Q6HR PRN MDD 6 per day 05/18/18 [History Confirmed 05/18/18] PMH/Surg Hx/FS Hx/Imm Hx Previously Healthy: No Endocrine/Hematology History: Reports: Hx Anticoagulant Therapy Denies: Hx Diabetes Cardiovascular History: Reports: Hx Hypertension Respiratory History: Reports: Hx Asthma, Hx Pneumonia, Other Respiratory Problems/Disorders - HX OF PNUEMONIA Sensory History: Reports: Hx Cataracts, Hx Contacts or Glasses Opthamlomology History: Reports: Hx Cataracts, Hx Contacts or Glasses - Surgical History Surgery Procedure, Year, and Place: cholecystectomy, hysterectomy Infectious Disease History: No Infectious Disease History: Denies: Traveled Outside the [place] in Last 30 Days - Social History Alcohol Use: None Substance Use Type: Reports: None Smoking Status (MU): Never Smoked Tobacco Review of Systems Constitutional: Negative Eyes: Negative ENT: Negative Cardiovascular: Negative Respiratory: Negative Gastrointestinal: Negative Genitourinary: Negative Musculoskeletal: Other - bilateral hip pain radiating down leg Positive: Edema - R posterior thigh swelling s/p fall Skin: Negative Neurological: Other - dizziness Psychological: Normal All Other Systems Reviewed And Are Negative: Yes Physical Exam - Summary Physical Exam Summary: Appearance: Well-appearing, Well-nourished Skin: Warm Eyes: Normal ENT: Normal Neck: Supple, nontender Respiratory: Clear to auscultation Cardiovascular: Regular rate, regular rhythm. Normal S1, S2. Abdomen: Soft, nontender Musculoskeletal: In the area of the Lesser Trochanter/lower hip there is as 3x5 cm area of swelling. Neurological: Normal, A&Ox3 Psychiatric: Normal General: No acute distress Triage Information Reviewed: Yes Vital Signs On Initial Exam: Initial Vitals Temp Pulse Resp BP Pulse Ox 99.4 F 100 16 139/71 92 05/18/18 19:50 05/18/18 19:50 05/18/18 19:50 05/18/18 19:50 05/18/18 19:50 Vital Signs Reviewed: Yes Diagnostics - Vital Signs Vital Signs Temp Pulse Resp BP Pulse Ox 05/18/18 19:50 99.4 F 100 16 139/71 92 - Laboratory Result Diagrams: 05/19/18 06:19 05/18/18 21:05 Lab Statement: Any lab studies that have been ordered have been reviewed, and results considered in the medical decision making process. - Radiology FEMUR XR Xray Interpretation: No Acute Changes - Negative for fracture dislocation Radiology Interpretation Completed By: ED Physician HIP XR Xray Interpretation: No Acute Changes - Negative for fracture dislocation Radiology Interpretation Completed By: ED Physician - EKG 1 EKG Interpretation: 21:02 - AFIB @ 112, unchanged from 09/15/14 Dizzy Course/Dx - Course Course Of Treatment: All imaging studies were negative for fracture, however, pt is on Xarelto with a new contusion on right hip where there is potential blood loss that may be significant. Pt advised to be admitted overnight for H&H montoring and is admitted under hospitalist service. - Diagnoses Provider Diagnoses: Fall, Contusion of right hip region - Provider Notifications Discussed Care Of Patient With: Ling Uribe Time Discussed With Above Provider: 21:30 Instructed by Provider To: Admit As Inpatient Discharge - Sign-Out/Discharge Documenting (check all that apply): Patient Departure - Discharge Plan Condition: Stable Disposition: ADMITTED TO [facility] - Billing Disposition and Condition Condition: STABLE Disposition: Admitted to [facility]
[2018-05-18 21:20] LABS: ABS Basophils 0.1 10^3/ul (0-0.2); ABS Eosinophils 0.2 10^3/ul (0-0.6); ABS Monocytes 0.6 10^3/ul (0-0.8); ABS Neutrophils 4.1 10^3/ul (1.5-7.7); ABS Nucleated RBC 0 10^3/ul; Eosinophil % 2.6 % (0-6); Hematocrit 41 % (35-47); Hemoglobin 13.7 g/dl (12.0-16.0); Lymphocyte % 28.5 % (25-47); Mean Corpuscular HGB Conc 34 g/dl (31-36); Mean Corpuscular Hemoglobin 31 pg (27-31); Mean Corpuscular Volume 94 fL (80-97); Mean Platelet Volume 9.6 um3 (7.4-10.4); Nucleated Red Blood Cells % 0; Platelet Count 179 10^3/ul (150-450); Red Blood Count 4.38 10^6/ul (4.00-5.40); Red Cell Distribution Width 13 % (10.5-15)
[2018-05-18 21:40] LABS: EGFR Non-African American 75.8 (>60)
[2018-05-18 22:31] LABS: Urine Appearance Clear; Urine Blood Negative (Negative); Urine Color Straw; Urine Ketones Negative (Negative); Urine Protein Negative (Negative); Urine Specific Gravity 1.008 (1.010-1.030); Urine Urobilinogen Negative (Negative)
[2018-05-18] MEDS: Acetaminophen TAB* 325 MG PO PRN (22:46)
[2018-05-18] MEDS ORDERED: LORazepam INJ* 2 MG/ML 1 ML VIAL IV PUSH ONE (23:21)
[2018-05-18] MEDS ORDERED: Albuterol 2.5 MG/3 ML NEB.SOL* (0.083%) INH PRN (23:21)
[2018-05-18] MEDS ORDERED: LORazepam INJ* 2 MG/ML 1 ML VIAL ONE (23:24)
[2018-05-18] MEDS ORDERED: Albuterol 2.5 MG/3 ML NEB.SOL* (0.083%) INH ONE (23:24)
--- NOTE | 2018-05-18 23:29 | HP ---
ADDENDUM NOW INCLUDED ON THIS REPORT CC: Dr. Mi * HISTORY AND PHYSICAL: DATE OF ADMISSION: 05/18/18 PRIMARY CARE PROVIDER: Dr. Mi. NAIL MAKING MACHINE SETTER: Dr. Pantoja. CHIEF COMPLAINT: Fall. HISTORY OF PRESENT ILLNESS: Ms. Francis is an 83-year-old female who has a history of atrial fibrillation, who is on Xarelto chronically, who presents to the emergency room after sustaining a fall at home. The patient states since this past Tuesday she has had back in left leg/hip pain. She states that she took a Flexeril and then worked with a massage therapist having a full body massage and trigger point release. After getting up from her massage and walking for a few steps, she began to feel quite woozy. She then states that despite using the walker, she fell onto her right side. She had a single point that was quite tender on the right side; however, the tenderness on this area at this point is now improved. She has noted some swelling overlying the upper lateral femur. The patient had no loss of consciousness during this event. The patient has never had dizzy spell in the past. The patient states that she has never tried taking the Flexeril in the past and believes that the Flexeril and relaxation from the massage led to her dizziness. PAST MEDICAL HISTORY: 1. Atrial fibrillation. 2. Asthma. PAST SURGICAL HISTORY: 1. Cholecystectomy. 2. EVIN-BSO. MEDICATIONS: 1. Flexeril 5 mg p.o. b.i.d. p.r.n. spasm. 2. Tramadol 50-100 mg p.o. q.6 hours p.r.n. pain. 3. Ivermectin applied topically daily. 4. Doxycycline 50 mg p.o. b.i.d. 5. Xarelto 20 mg p.o. daily. 6. Metoprolol XL 100 mg p.o. daily. ALLERGIES: SULFA. FAMILY HISTORY: Mom at the age of 96. She had a hip fracture at the age of 83 and never got out of the wheelchair. Dad at the age of 80 of an [place]. SOCIAL HISTORY: The patient is a nonsmoker. She does not drink alcohol. She works as a traveling storekeeper. She is not . She has no children. She indicates that Wero Juan is her healthcare proxy. REVIEW OF SYSTEMS: A complete 11-system review of systems is obtained. Pertinent positives and negatives are as per HPI. In addition, the patient does state that she has had some situational depression related to first facial rash followed by the pain in her left leg. PHYSICAL EXAMINATION GENERAL: The patient is a well-developed, elderly female, who appears younger than her stated age, sitting up in the stretcher, in no acute distress. VITAL SIGNS: Blood pressure 139/71, pulse 100, respirations 16, temp 99.4, O2 sat 92% on room air. HEENT: Pupils are equal and round. Extraocular muscles are intact. Oropharynx is clear. Oral mucosa is moist. There is no submandibular, cervical , or supraclavicular adenopathy. Thyroid is not enlarged. No thyroid nodules are noted. CARDIAC: Normal S1, S2. Heart is irregularly irregular and mildly tachycardic. There are no murmurs. She has no lower extremity edema. PULMONARY: Lungs are clear to auscultation anteriorly. ABDOMEN: Bowel sounds present. Abdomen is soft, nontender, nondistended. MUSCULOSKELETAL: There is no cyanosis or clubbing of the digits. There is full active range of motion of the upper extremities. Lower extremity range of motion is not tested at this time due to pain. There is a lemon sized area of swelling overlying the proximal lateral femur on the right. NEURO: Cranial nerves II through XII are grossly intact. Sensation is intact to light touch throughout. Strength is 5/5 and symmetric in the upper extremities. Lower extremity strength is not tested due to pain. PSYCH: The patient is alert. She is oriented x3. Affect appears appropriate. SKIN: Warm and dry. There are no rashes. The patient does have facial rash noted over the nose and the cheeks. DIAGNOSTIC STUDIES/LAB DATA: WBC 7.0, hemoglobin 13.7, hematocrit 41, platelets 179. PTT 37.9. Sodium 138, potassium 3.8, chloride 102, CO2 29, BUN 12, creatinine 0.73, glucose 126, calcium 9.4. Bilirubin 0.6. AST 21, ALT 16, alk phos 58. Troponin 0.01, albumin 3.8. TSH 3.83. EKG reveals atrial fibrillation with a ventricular rate of 112. No acute ST-T wave abnormalities are noted. Chest x-ray and... ADDENDUM: ASSESSMENT AND PLAN: Ms. Francis is an 83-year-old female with a history of atrial fibrillation, on Xarelto, who sustained an episode of dizziness after taking a dose of Flexeril and having a massage on the day of admission where she landed on her right hip. 1. Right hip pain. To my inspection of the x-ray, there is no fracture. We will await the official radiologist's read. The biggest concern is that the patient is on Xarelto. She does have a lump overlying the lateral aspect of the proximal femur on the right. The patient will have a followup CBC obtained tomorrow morning. At this point, her hemoglobin is completely stable. 2. Left hip pain. This has been an issue for the patient since this past Tuesday. The patient states that she is afraid to use Flexeril any further. I have ordered Tylenol and tramadol for pain. The patient will be up with assist and see how she does walking tomorrow and likely she can be discharged to home. 3. Atrial fibrillation. The patient is in rapid atrial fibrillation at this point. She did not take her metoprolol. She states she typically takes it around 5 p.m. This will be given at this point. We will monitor her heart rate on telemetry due to the episode of dizziness; however, I suspect the dizziness truly was related to the Flexeril and just completing massage. 4. DVT prophylaxis. According to the Adult Thrombosis Prophylaxis Risk Factor Assessment Guide, the patient has a total risk factor score of 3 making her high risk. She will be continued on Xarelto as there have been no signs of bleeding at this point. 5. Code status is full. TIME SPENT: 65 minutes were spent admitting this patient of which greater than half was spent [id number] with the patient reviewing her history and performing a physical exam. [id number]/CPS #: [id number]/CPS #: [id number] LESTER
--- NOTE | 2018-05-18 23:38 | HP ---
CC: Dr. Mi HISTORY AND PHYSICAL: ADDENDUM: ASSESSMENT AND PLAN: Ms. Francis is an 83-year-old female with a history of atrial fibrillation, on Xarelto, who sustained an episode of dizziness after taking a dose of Flexeril and having a massage on the day of admission where she landed on her right hip. 1. Right hip pain. To my inspection of the x-ray, there is no fracture. We will await the official radiologist's read. The biggest concern is that the patient is on Xarelto. She does have a lump overlying the lateral aspect of the proximal femur on the right. The patient will have a followup CBC obtained tomorrow morning. At this point, her hemoglobin is completely stable. 2. Left hip pain. This has been an issue for the patient since this past Tuesday. The patient states that she is afraid to use Flexeril any further. I have ordered Tylenol and tramadol for pain. The patient will be up with assist and see how she does walking tomorrow and likely she can be discharged to home. 3. Atrial fibrillation. The patient is in rapid atrial fibrillation at this point. She did not take her metoprolol. She states she typically takes it around 5 p.m. This will be given at this point. We will monitor her heart rate on telemetry due to the episode of dizziness; however, I suspect the dizziness truly was related to the Flexeril and just completing massage. 4. DVT prophylaxis. According to the Adult Thrombosis Prophylaxis Risk Factor Assessment Guide, the patient has a total risk factor score of 3 making her high risk. She will be continued on Xarelto as there have been no signs of bleeding at this point. 5. Code status is full. TIME SPENT: 65 minutes were spent admitting this patient of which greater than half was spent [id number] with the patient reviewing her history and performing a physical exam. [id number]/[facility] #: [id number] LESTER
[2018-05-19] MEDS: Metoprolol Succinate XL TAB* 100 MG PO SCH ×2 (00:26→22:13)
[2018-05-19] MEDS: Acetaminophen TAB* 325 MG PO PRN (04:01)
[2018-05-19 06:58] LABS: Hematocrit 40 % (35-47); Hemoglobin 13.1 g/dl (12.0-16.0); Mean Corpuscular HGB Conc 33 g/dl (31-36); Mean Corpuscular Hemoglobin 31 pg (27-31); Mean Corpuscular Volume 94 fL (80-97); Mean Platelet Volume 9.8 um3 (7.4-10.4); Platelet Count 171 10^3/ul (150-450); Red Blood Count 4.24 10^6/ul (4.00-5.40); Red Cell Distribution Width 13 % (10.5-15); White Blood Count 6.3 10^3/ul (3.5-10.8)
--- NOTE | 2018-05-19 07:46 | RAD ---
HISTORY: fall, bilateral hip pain COMPARISONS: None relevant VIEWS: 15, Frontal view of the pelvis with frontal and frog-leg views of the hips bilaterally with frontal and lateral views of the right femur and of the left femur FINDINGS: Right: BONE DENSITY: There is diffuse osteopenia. BONES: There is no displaced fracture. JOINTS: There is mild osteoarthritis of the right hip. There is moderate osteoarthritis of the right knee. ALIGNMENT: There is no dislocation. The alignment is anatomic. SOFT TISSUES: There is peripheral arterial calcification. Left: BONE DENSITY: There is diffuse osteopenia. BONES: There is no displaced fracture. JOINTS: There is mild osteoarthritis of the left hip. There is moderate osteoarthritis of the left knee. ALIGNMENT: There is no dislocation. The alignment is anatomic. SOFT TISSUES: There is peripheral arterial calcification. OTHER FINDINGS: Degenerative changes are noted of the spine. IMPRESSION: 1. OSTEOPENIA. 2. OSTEOARTHRITIS. 3. PERIPHERAL ARTERIAL DISEASE. 4. NO RADIOGRAPHIC EVIDENCE FOR HIP FRACTURE. X-RAYS MAY BE NEGATIVE WITH NONDISPLACED HIP FRACTURE, IF THERE IS PERSISTENT CLINICAL CONCERN, RECOMMEND CONSIDERATION OF MRI. IN THE SETTING OF CONTRAINDICATION TO MRI OR LIMITATION IN EMERGENT ACCESS TO MRI, CT WOULD BE SUGGESTED. R1
[2018-05-19] MEDS ORDERED: Doxycycline TAB(NF) 50 MG TAB PO SCH (09:00)
[2018-05-19] MEDS: traMADol TAB* 50 MG PO PRN ×3 (09:10→23:48)
[2018-05-19] MEDS: Rivaroxaban TAB(*) 20 MG TAB PO SCH (09:10)
--- NOTE | 2018-05-19 11:28 | PN ---
Subjective Date of Service: 05/19/18 Interval History: Mrs. Francis reports feeling better. Pain is tolerable, still has low back pain, been going on for past week. Has not attempted walking today yet. Right hip "bruise" is a little tender, but not any worse since last night. Tramadol seems to control her pain. She tells me that her PCP has requested an MRI giving her back pain for the past week. She would like to have this done during her admission. Denies lower extremities numbness or weakness. Feels unsteady on her feet for past week or so, have used a cane then a walker for a while at home. She has no new complaints today. Family History: Unchanged from Admission Social History: Unchanged from Admission Past Medical History: Unchanged from Admission Objective Active Medications: Acetaminophen (Tylenol Tab*) 650 mg PO Q4H PRN PRN Reason: PAIN Last Admin: 05/19/18 04:01 Dose: 650 mg Albuterol (Ventolin 2.5 Mg/3 Ml Neb.Desire*) 2.5 mg INH Q4H PRN PRN Reason: SOB/WHEEZING Lorazepam (Ativan Tab(*)) 0.5 mg PO Q6H PRN PRN Reason: ANXIETY Metoprolol Succinate (Toprol Xl Tab*) 100 mg PO 2100 [facility] Last Admin: 05/19/18 00:26 Dose: 100 mg Rivaroxaban (Xarelto(*)) 20 mg PO DAILY [facility] Last Admin: 05/19/18 09:10 Dose: 20 mg Tramadol HCl (Ultram*) 50 mg PO Q6H PRN PRN Reason: PAIN Last Admin: 05/19/18 09:10 Dose: 50 mg Vital Signs - 8 hr 05/19/18 05/19/18 05/19/18 07:46 07:56 08:00 Temperature 97.9 F Pulse Rate 99 Respiratory 18 18 Rate Blood Pressure 133/92 (mmHg) O2 Sat by Pulse 100 Oximetry 05/19/18 05/19/18 09:10 11:08 Temperature Pulse Rate Respiratory 26 16 Rate Blood Pressure (mmHg) O2 Sat by Pulse Oximetry Oxygen Devices in Use Now: Nasal Cannula Appearance: Laying in her bed, appears comfortable and in NAD. Ears/Nose/Mouth/Throat: Clear Oropharnyx, Mucous Membranes Moist Neck: NL Appearance and Movements; NL JVP, Trachea Midline Respiratory: Symmetrical Chest Expansion and Respiratory Effort, Clear to Auscultation Cardiovascular: NL Sounds; No Murmurs; No JVD, - - Irrigular rate and rythem Abdominal: NL Sounds; No Tenderness; No Distention Extremities: No Edema, No Clubbing, Cyanosis, - - Right lateral hip with a moderate size contusion and hematoma, approx 5 cm with minimal tenderness. Very faint surrounding ecchymosis, no erythema. No bony deformity or other lesions noted. Left hip with no ecchymosis or swelling. Neurological: Alert and Oriented x 3, NL Sensation, NL Muscle Strength and Tone Nutrition: Taking PO's Result Diagrams: 05/19/18 06:19 05/18/18 21:05 Additional Lab and Data: . Microbiology and Other Data: . Diagnostic Imaging: Patient Name: ANDERS FRANCIS Medical Record#: [id number] Ordering Physician: Yandy Rae MD Acct.#: [id number] : 1935 Age: 83 Sex: F Location: [address] [place] [address] - MEDICAL Exam Date: 05/18/182052 ADM Status: ADM Jose Order Information: HIPS-BILATERAL 5+ VWS Accession Number: [id number] CPT: 96901 HISTORY: fall, bilateral hip pain COMPARISONS: None relevant VIEWS: 15, Frontal view of the pelvis with frontal and frog-leg views of the hips bilaterally with frontal and lateral views of the right femur and of the left femur OTHER FINDINGS: Degenerative changes are noted of the spine. IMPRESSION: 1. OSTEOPENIA. 2. OSTEOARTHRITIS. 3. PERIPHERAL ARTERIAL DISEASE. 4. NO RADIOGRAPHIC EVIDENCE FOR HIP FRACTURE. X-RAYS MAY BE NEGATIVE WITH NONDISPLACED HIP FRACTURE, IF THERE IS PERSISTENT CLINICAL CONCERN, RECOMMEND CONSIDERATION OF MRI. IN THE SETTING OF CONTRAINDICATION TO MRI OR LIMITATION IN EMERGENT ACCESS TO MRI, CT WOULD BE SUGGESTED. R1 <Electronically signed by Geoffrey Abraham MD in OV> 05/19/18741 Dictated By: Geoffrey Abraham MD Dictated Date/Time: 05/19/18741 Transcribed Date/Time: 07/20/18 0740 EKG Data: EKG INTERPRETATION ECG Report Patient Name ANDERS FRANCIS Birthdate 1935 Sex F Order Number [id number] Date of ECG 05/18/2018 21:02:16 Interpretation Atrial fibrillation.V-rate 69-147, irreg A-activity RSR' in V1 or V2, right - ABNORMAL ECG - ECG NEEDS E-SIGNING Assess/Plan/Problems-Billing Assessment: An 83 y/o female with PMH atrial fibrilation, on Xeralto, who sustained a mechanical fall last night secondary to feeling dizzy, possibly due to Flexeril , who was found to have a R hip contusion, also has hx L hip and low back pain. - Patient Problems (1) Contusion of right hip Current Visit: Yes Status: Acute Comment: - Appears to be stable in the setting of being on Xeralto - H/H stable this AM - No evidence of bleeding - Pain control, PT evaluation today. (2) Left hip pain Current Visit: Yes Status: Acute Comment: - Appears t be a chronic issue for past week. - Unclear of it is related to osteoarthritis or possible sciatica pain from cronic low back issues - Pelvis xrays negative for fractures - PT eval today, possible case management social worker consult for STR placement - Patient lives alone, has had difficulty ambulating with her walker at home for past week. (3) Back pain Current Visit: Yes Status: Acute Comment: - Again, appears to be a chronic issues for past week. - Patient was scheduled for MRI to rule out possible disk disease. - Will plan to get an MRI during her admission, suspect possible degenerative disk disease vs nerve impingement. - No c/o of weakness or numbness of lower extremities. (4) Atrial fibrillation Current Visit: No Status: Chronic Comment: - Rate controlled and stable (5) DVT prophylaxis Current Visit: Yes Status: Acute Comment: - On Xeralto (6) Full code status Current Visit: Yes Status: Acute Status and Disposition: Observation to inpatient, MRI for evaluation of back referred hips pain, anticipate discharge when medically stable, likely to STR.
--- NOTE | 2018-05-19 15:32 | RAD ---
HISTORY: Low back pain, unsteady gait, fall COMPARISONS: None TECHNIQUE: The following sequences were obtained of the lumbar spine: Sagittal and axial T1- and T2-weighted images, coronal T2-weighted images, and sagittal STIR images. FINDINGS: There is transitional last lumbar type vertebral body which will be labeled S1 for the purposes of counting. SPINAL CORD, CONUS, AND CAUDA EQUINA: There is epidural soft tissue density opposite of L3, further described below. Elsewhere, there is a spinal cord, conus, and cauda equina are normal in caliber position and signal intensity. ALIGNMENT: There is trace retrolisthesis of L1 on L2. VERTEBRAL BODIES: There is multilevel anterolateral marginal osteophyte formation. There are mild Modic type I reactive end plate changes at L3-L4. There is a hemangioma of T11. There is partial lumbarization of the S1 vertebral body. JOINTS: There is diffuse facet osteoarthritis. MUSCULATURE: There is moderate fatty infiltration, with mild atrophy of the erector spinae. INTERVERTEBRAL DISCS: There is diffuse loss of intervertebral disc height and T2 signal throughout the spine. AXIAL IMAGES: T12-L1: There is no disc herniation, spinal stenosis, or neuroforaminal narrowing. L1-L2: There is mild disc bulge. There is facet osteoarthritis. There is no significant neural foraminal narrowing or central canal stenosis. L2-L3: There is no disc herniation, spinal stenosis, or neuroforaminal narrowing. L3-L4: There is a left lateral recess epidural soft tissue density suggestive of a left lateral recess superior disc extrusion extending from L3-L4, measuring 1.9 cm in CC dimension and 1 x 1.2 cm transversely. This displaces the left-sided nerve roots. There is bilateral facet hypertrophy. There is severe left neural foraminal narrowing. There is no significant central canal stenosis. L4-L5: There is a broad-based disc bulge. There is ligamentous and facet hypertrophy. There is mild bilateral neural foraminal narrowing. There is moderate to severe narrowing of the central canal. L5-S1: There is bilateral facet hypertrophy. There is mild disc bulge. There is marginal osteophyte formation at the neural foramina bilaterally. There is mild bilateral neuroforaminal narrowing. There is no significant central canal stenosis. S1-S2: There is no significant neural foraminal narrowing or central canal stenosis. SOFT TISSUES: The visualized soft tissues of the abdomen are unremarkable. OTHER: None. IMPRESSION: 1. DEGENERATIVE DISC DISEASE AND OSTEOARTHRITIS. 2. THERE IS AN EPIDURAL SOFT TISSUE DENSITY AT L3. THE IMAGING APPEARANCE IS SUGGESTIVE OF A LARGE SUPERIOR DISC EXTRUSION FROM L3-L4, THOUGH SPINAL MENINGIOMA OR POSSIBLE SCHWANNOMA ARE ALSO WITHIN THE DIFFERENTIAL. CONSIDER FURTHER EVALUATION WITH CONTRAST-ENHANCED MRI. 3. THERE IS MODERATE TO SEVERE NARROWING OF THE CENTRAL CANAL AT L4-L5. 4. THERE IS MULTILEVEL NEURAL FORAMINAL NARROWING DESCRIBED ABOVE.
[2018-05-20] MEDS: traMADol TAB* 50 MG PO PRN ×2 (05:55→12:08)
[2018-05-20] MEDS: Rivaroxaban TAB(*) 20 MG TAB PO SCH (10:10)
--- NOTE | 2018-05-20 10:42 | PN ---
Progress Note - Progress Note Date of Service: 05/20/18 SOAP: Subjective: [] Patient with history of left leg and back pain x 10 days Fell after taking a muscle relaxant and ended up in ER for evaluation. She is on Xarelto for A fib MRI yesterday shows extruded disc fragment Objective: []Hip flexors weak on Left SLR positive on left KJ,AJ absent bilaterally Assessment: []She has a very symptomatic disc rupture that will likely need surgery Plan: []She needs pre op medical clearance Xarelto stopped Surgery when medically cleared
--- NOTE | 2018-05-20 14:37 | PN ---
Subjective Date of Service: 05/20/18 Interval History: Ms. Francis had a panic attack this morning. She felt overwhelmed after discussing surgical plans with Dr. Burgess. Since then she has moved to a new room and has relaxing music playing and feels much better. Her pain is well controlled at this time. She walked from the bed to the chair and felt good. Family History: Unchanged from Admission Social History: Unchanged from Admission Past Medical History: Unchanged from Admission Objective Active Medications: Acetaminophen (Tylenol Tab*) 650 mg PO Q4H PRN PRN Reason: PAIN Last Admin: 05/19/18 04:01 Dose: 650 mg Albuterol (Ventolin 2.5 Mg/3 Ml Neb.Desire*) 2.5 mg INH Q4H PRN PRN Reason: SOB/WHEEZING Lorazepam (Ativan Tab(*)) 0.5 mg PO Q6H PRN PRN Reason: ANXIETY Metoprolol Succinate (Toprol Xl Tab*) 100 mg PO 2100 CROW Last Admin: 05/19/18 22:13 Dose: 100 mg Tramadol HCl (Ultram*) 50 mg PO Q6H PRN PRN Reason: PAIN Last Admin: 05/20/18 12:08 Dose: 50 mg Vital Signs - 8 hr 05/20/18 05/20/18 05/20/18 07:15 07:27 08:00 Temperature 98.0 F Pulse Rate 91 Respiratory 17 16 Rate Blood Pressure 111/66 (mmHg) O2 Sat by Pulse 100 Oximetry 05/20/18 05/20/18 10:12 12:08 Temperature Pulse Rate Respiratory 16 12 Rate Blood Pressure (mmHg) O2 Sat by Pulse Oximetry Oxygen Devices in Use Now: Nasal Cannula Appearance: calm, well appearing, resting in bed Eyes: No Scleral Icterus Ears/Nose/Mouth/Throat: NL Teeth, Lips, Gums Neck: NL Appearance and Movements; NL JVP Respiratory: Symmetrical Chest Expansion and Respiratory Effort, Clear to Auscultation Cardiovascular: NL Sounds; No Murmurs; No JVD, - - irregular rhythm Abdominal: NL Sounds; No Tenderness; No Distention, No Hepatosplenomegaly Lymphatic: No Cervical Adenopathy Extremities: No Edema Skin: No Rash or Ulcers, - - echymoses over right hip and right foot Neurological: Alert and Oriented x 3, - - right hip 5/5, left hip 4/5 Result Diagrams: 05/19/18 06:19 05/18/18 21:05 Additional Lab and Data: . Microbiology and Other Data: . Diagnostic Imaging: Patient Name: ANDERS FRANCIS Medical Record#: [id number] Ordering Physician: Yandy Rae MD Acct.#: [id number] : 1935 Age: 83 Sex: F Location: [address] [place] [address] MEDICAL Exam Date: 05/18/182052 ADM Status: ADM Jose Order Information: HIPS-BILATERAL 5+ VWS Accession Number: [id number] CPT: 70500 HISTORY: fall, bilateral hip pain COMPARISONS: None relevant VIEWS: 15, Frontal view of the pelvis with frontal and frog-leg views of the hips bilaterally with frontal and lateral views of the right femur and of the left femur OTHER FINDINGS: Degenerative changes are noted of the spine. IMPRESSION: 1. OSTEOPENIA. 2. OSTEOARTHRITIS. 3. PERIPHERAL ARTERIAL DISEASE. 4. NO RADIOGRAPHIC EVIDENCE FOR HIP FRACTURE. X-RAYS MAY BE NEGATIVE WITH NONDISPLACED HIP FRACTURE, IF THERE IS PERSISTENT CLINICAL CONCERN, RECOMMEND CONSIDERATION OF MRI. IN THE SETTING OF CONTRAINDICATION TO MRI OR LIMITATION IN EMERGENT ACCESS TO MRI, CT WOULD BE SUGGESTED. R1 <Electronically signed by Geoffrey Abraham MD in OV> 05/19/18741 Dictated By: Geoffrey Abraham MD Dictated Date/Time: 05/19/1842 Transcribed Date/Time: 05/19/18 07 EKG Data: EKG INTERPRETATION ECG Report Patient Name ANDERS FRANCIS Birthdate 1935 Sex F Order Number [id number] Date of ECG 05/18/2018 21:02:16 Interpretation Atrial fibrillation.V-rate 69-147, irreg A-activity RSR' in V1 or V2, right - ABNORMAL ECG - ECG NEEDS E-SIGNING Assess/Plan/Problems-Billing Assessment: An 83 y/o female with history of atrial fibrilation on Xerelto admitted after a fall with hip and back pain - Patient Problems (1) Herniation of lumbar intervertebral disc Current Visit: Yes Status: Acute Code(s): M51.26 - OTHER INTERVERTEBRAL DISC DISPLACEMENT, LUMBAR REGION SNOMED Code(s): 133479313 Comment: neurosurgery following; plan for surgery early next week (2) Contusion of right hip Current Visit: Yes Status: Acute Code(s): S70.01XA - CONTUSION OF RIGHT HIP , INITIAL ENCOUNTER SNOMED Code(s): 61587042 Comment: hgb stable PT and pain control (3) Atrial fibrillation Current Visit: No Status: Chronic Code(s): I48.91 - UNSPECIFIED ATRIAL FIBRILLATION SNOMED Code(s): 73108672 Comment: rate controlled on metoprolol xarelto on hold in anticipation of surgery Status and Disposition: Observation to inpatient, MRI for evaluation of back referred hips pain, anticipate discharge when medically stable, likely to STR.
[2018-05-20] MEDS: LORazepam TAB(*) 0.5 MG PO PRN (19:43)
[2018-05-20] MEDS: Metoprolol Succinate XL TAB* 100 MG PO SCH (19:43)
--- NOTE | 2018-05-21 08:37 | PN ---
Subjective Date of Service: 05/21/18 Interval History: Ms. Francis reports low back pain that radiates into her left leg which is a bit worse this morning. She denies any other complaint including chest pain, SOB, nausea, or abdominal pain. She is tolerating oral intake well. Family History: Unchanged from Admission Social History: Unchanged from Admission Past Medical History: Unchanged from Admission Objective Active Medications: Acetaminophen (Tylenol Tab*) 650 mg PO Q4H PRN Albuterol (Ventolin 2.5 Mg/3 Ml Neb.Desire*) 2.5 mg INH Q4H PRN Lorazepam (Ativan Tab(*)) 0.5 mg PO Q6H PRN Metoprolol Succinate (Toprol Xl Tab*) 100 mg PO 2100 CROW Tramadol HCl (Ultram*) 50 mg PO Q6H PRN Vital Signs: Temp Pulse Resp BP Pulse Ox 97.7 F 70 14 109/60 92 05/21/18 03:59 05/21/18 03:59 05/21/18 03:59 05/21/18 03:59 05/21/18 03:59 Oxygen Devices in Use Now: None Appearance: Female sitting up in chair in NAD Eyes: No Scleral Icterus Ears/Nose/Mouth/Throat: Mucous Membranes Moist Neck: Trachea Midline Respiratory: Symmetrical Chest Expansion and Respiratory Effort, Clear to Auscultation Cardiovascular: NL Sounds; No Murmurs; No JVD, No Edema Abdominal: NL Sounds; No Tenderness; No Distention Lymphatic: No Cervical Adenopathy Extremities: No Edema Skin: No Rash or Ulcers Neurological: Alert and Oriented x 3, - - Limited ROM due to pain in L LE Nutrition: Taking PO's Result Diagrams: 05/19/18 06:19 05/18/18 21:05 Assess/Plan/Problems-Billing Assessment: Ms. Francis is an 83 y/o female with history of atrial fibrillation on xarelto admitted after a fall with hip and back pain found to have a L3-L4 disc protrusion with plans for surgery with Dr. Burgess. - Patient Problems (1) Herniation of lumbar intervertebral disc Comment: - L3-L4 disc extrusion. - Appreciate consult from Dr. Burgess; plan for surgery early next week. - Patient is able to walk up a flight of stairs though she feels limited by her history of vertigo. Patient's last cardiology visit was with Dr. Pantoja on , with no issues identified. Her last echo was from 02/2017 and found intact EF without significant valvular abnormalities. According to the [facility], patient has 0 risk factors and a 0.4-0.5% risk of cardiac complication. No further testing is indicated. - Patient's last dose of xarelto was 05/20 at 1000. She has no history of CVA and does not need bridging therapy but should resume xarelto when approved per neurosurgery in the post-operative period. - Encouraged IS, pain meds with bowel regimen, mobility in room as possible. (2) Atrial fibrillation Comment: - Rate controlled on metoprolol. - Xarelto on hold in anticipation of surgery. (3) Contusion of right hip Comment: - Hgb stable (4) Asthma Comment: - Asymptomatic, not on home meds. (5) DVT prophylaxis Comment: - Heparin SQ, hold 8 hours prior to surgery. (6) Full code status Comment: Status and Disposition: Observation to inpatient, plan for surgery with Dr. Burgess.
[2018-05-21] MEDS ORDERED: oxyCODONE TAB* 5 MG TAB PO PRN (09:02)
[2018-05-21] MEDS ORDERED: Ketorolac INJ* 15 MG/ML 1 ML VIAL IV PUSH PRN (09:03)
[2018-05-21] MEDS ORDERED: Docusate CAP* 100 MG PO PRN (09:03)
[2018-05-21] MEDS ORDERED: Senna TAB PO PRN (09:03)
[2018-05-21] MEDS ORDERED: Polyethylene Glycol 3350* 17 GM PACKET PO PRN (09:04)
[2018-05-21] MEDS: Heparin VIAL(*) 5000 UNITS/ML VIAL (FIVE THOUSAND) SUBCUT SCH ×2 (16:19→22:09)
[2018-05-21] MEDS: traMADol TAB* 50 MG PO PRN (17:52)
[2018-05-21] MEDS: LORazepam TAB(*) 0.5 MG PO PRN (17:56)
--- NOTE | 2018-05-21 19:05 | PN ---
Progress Note - Progress Note Date of Service: 05/21/18 SOAP: Subjective: []She continues to complain of left leg pain Has been off Xarelto Again discussed need for surgery Objective: []Prox hip flexor weakness on left SLR positive on left Assessment: []Stable Plan: []Plan Lumbar Discectomy 05/23
[2018-05-21] MEDS: Acetaminophen TAB* 325 MG PO SCH (22:09)
[2018-05-21] MEDS: Metoprolol Succinate XL TAB* 100 MG PO SCH (23:58)
[2018-05-22] MEDS: LORazepam TAB(*) 0.5 MG PO PRN ×2 (01:40→22:32)
[2018-05-22] MEDS: traMADol TAB* 50 MG PO PRN ×3 (01:40→22:33)
[2018-05-22] MEDS: Heparin VIAL(*) 5000 UNITS/ML VIAL (FIVE THOUSAND) SUBCUT SCH (06:57)
[2018-05-22] MEDS ORDERED: Heparin VIAL(*) 5000 UNITS/ML VIAL (FIVE THOUSAND) SUBCUT SCH (07:30)
--- NOTE | 2018-05-22 07:30 | PN ---
Subjective Date of Service: 05/22/18 Interval History: Ms. Francis reports having some pain in her low back and left leg that is unchanged. She denies other complaint including chest pain, SOB, nausea, or abdominal pain. She has met with Dr. Burgess last night and is comfortable with the plan to proceed with surgery tomorrow. Family History: Unchanged from Admission Social History: Unchanged from Admission Past Medical History: Unchanged from Admission Objective Active Medications: Acetaminophen (Tylenol Tab*) 975 mg PO BID CROW Albuterol (Ventolin 2.5 Mg/3 Ml Neb.Desire*) 2.5 mg INH Q4H PRN Docusate Sodium (Colace Cap*) 100 mg PO BID PRN Heparin Sodium (Porcine) (Heparin Vial(*)) 5,000 units SUBCUT Q8HR CROW Ketorolac Tromethamine (Toradol Inj*) 15 mg IV PUSH Q6H PRN Lorazepam (Ativan Tab(*)) 0.5 mg PO Q6H PRN Metoprolol Succinate (Toprol Xl Tab*) 100 mg PO 2100 CROW Oxycodone HCl (Roxycodone Tab*) 5 mg PO Q4H PRN Polyethylene Glycol/Electrolytes (Miralax*) 17 gm PO DAILY PRN Senna (Senokot Tab*) 1 tab PO BEDTIME PRN Tramadol HCl (Ultram*) 50 mg PO Q6H PRN Vital Signs: Temp Pulse Resp BP Pulse Ox 98.1 F 91 14 112/46 98 05/22/18 02:47 05/22/18 02:47 05/22/18 02:47 05/22/18 02:47 05/22/18 02:47 Oxygen Devices in Use Now: None Appearance: Female sitting on edge of bed in NAD Eyes: No Scleral Icterus Ears/Nose/Mouth/Throat: Mucous Membranes Moist Neck: Trachea Midline Respiratory: Symmetrical Chest Expansion and Respiratory Effort, Clear to Auscultation Cardiovascular: NL Sounds; No Murmurs; No JVD, No Edema Abdominal: NL Sounds; No Tenderness; No Distention Extremities: No Edema Skin: No Rash or Ulcers Neurological: Alert and Oriented x 3, - - Decreased ROM in left lower extremity due to pain Nutrition: Taking PO's Result Diagrams: 05/19/18 06:19 05/18/18 21:05 Assess/Plan/Problems-Billing Assessment: Ms. Francis is an 83 y/o female with history of atrial fibrillation on xarelto admitted after a fall with hip and back pain found to have a L3-L4 disc protrusion with plans for surgery with Dr. Burgess on 05/23/18. - Patient Problems (1) Herniation of lumbar intervertebral disc Comment: - L3-L4 disc extrusion noted on MRI. - Appreciate consult from Dr. Burgess; plan for surgery early next week. - At baseline, patient is able to walk up a flight of stairs though she feels limited by her history of vertigo. Patient's last cardiology visit was with Dr. Pantoja on 05/08/18, with no issues identified. Her last echo was from 02/2017 and found intact EF without significant valvular abnormalities. According to the [facility], patient has 0 risk factors and a 0.4-0.5% risk of cardiac complication. No further testing is indicated. - Patient's last dose of xarelto was 05/20 at 1000. She has no history of CVA and does not need bridging therapy but should resume xarelto when approved per neurosurgery in the post-operative period. - Encouraged IS, pain meds with bowel regimen, mobility in room as possible. (2) Atrial fibrillation Comment: - Rate controlled on metoprolol. - Xarelto on hold in anticipation of surgery. (3) Contusion of right hip Comment: - Hgb stable (4) Asthma Comment: - Asymptomatic, not on home meds. (5) DVT prophylaxis Comment: - Heparin SQ, hold 8 hours prior to surgery. (6) Full code status Comment: Status and Disposition: Observation to inpatient, plan for surgery with Dr. Burgess.
[2018-05-22] MEDS ORDERED: Buffered Lidocaine 0.9% SYRIN* 5 ML/SYR SYRINGE INTRADERM ONE (09:29)
[2018-05-22] MEDS: Acetaminophen TAB* 325 MG PO SCH ×2 (10:20→22:30)
[2018-05-22] MEDS: Metoprolol Succinate XL TAB* 100 MG PO SCH (22:33)
[2018-05-23] MEDS: traMADol TAB* 50 MG PO PRN ×2 (08:03→18:34)
[2018-05-23] MEDS: Acetaminophen TAB* 325 MG PO SCH ×2 (08:03→21:37)
[2018-05-23] MEDS: LORazepam TAB(*) 0.5 MG PO PRN ×2 (08:04→22:26)
[2018-05-23] MEDS ORDERED: Etomidate* 2 MG/ML 10 ML VIAL ONE (09:56)
[2018-05-23] MEDS ORDERED: Cisatracurium* 2 MG/ML MDV 5 ML ONE (09:57)
[2018-05-23] MEDS ORDERED: fentaNYL* 50 MCG/ML 2 ML VIAL (100 MCG VIAL) ONE ×2 (09:57→12:27)
[2018-05-23] MEDS ORDERED: Lidocaine 2% PF * 5 ML VIAL ONE (10:07)
[2018-05-23] MEDS ORDERED: ceFAZolin 2 GM PREMIX (*) 2 GM/50 ML BAG IVPB ONE (11:07)
[2018-05-23] MEDS ORDERED: Lidocain 1% EPI 1:100,000 * 30 ML MDV ONE (11:11)
[2018-05-23] MEDS ORDERED: Thrombin 5,000 UNITS* 1 APPLIC KIT - topical use - TOPICAL ONE (11:11)
[2018-05-23] MEDS ORDERED: Bacitracin IV* 50,000 UNITS INJ ONE (11:11)
[2018-05-23] MEDS ORDERED: HYDROmorphone INJ* 0.5 MG/0.5 ML SYRINGE IV PRN (11:16)
[2018-05-23] MEDS ORDERED: oxyCODONE TAB* 5 MG TAB PO PRN (11:16)
[2018-05-23] MEDS ORDERED: Naloxone* 0.4 MG/ML 1 ML VIAL IV PRN (11:16)
[2018-05-23] MEDS ORDERED: Acetaminophen IV 1GM/100ML * 1,000 MG/100 ML VIAL IVPB ONE (11:16)
[2018-05-23] MEDS ORDERED: fentaNYL* 50 MCG/ML 2 ML VIAL (100 MCG VIAL) IV PRN (11:16)
[2018-05-23] MEDS ORDERED: Ondansetron INJ* 2 MG/ML VIAL IV PRN (11:16)
[2018-05-23] MEDS ORDERED: PROCHLORPERAZINE INJ 5 MG/ML 2 ML VIAL IV PRN (11:16)
[2018-05-23] MEDS ORDERED: Ondansetron INJ* 2 MG/ML VIAL ONE (12:16)
[2018-05-23] MEDS ORDERED: Propofol* 10 MG/ML 20 ML BTL IV PUSH ONE (12:16)
[2018-05-23] MEDS ORDERED: Metoprolol Tartrate IV* 1 MG/ML 5 ML VIAL ONE (12:39)
--- NOTE | 2018-05-23 13:39 | PN ---
Subjective Date of Service: 05/23/18 Interval History: Ms. Francis is sedated in the post operative period but awakens easily to voice. She remembers that she is in the hospital and had back surgery. She denies complaint and states that she is comfortable. Family History: Unchanged from Admission Social History: Unchanged from Admission Past Medical History: Unchanged from Admission Objective Active Medications: Acetaminophen (Tylenol Tab*) 975 mg PO BID CROW Albuterol (Ventolin 2.5 Mg/3 Ml Neb.Desire*) 2.5 mg INH Q4H PRN Docusate Sodium (Colace Cap*) 100 mg PO BID PRN Fentanyl Citrate (Fentanyl*) 50 mcg IV Q5M PRN Hydromorphone HCl (Dilaudid Inj*) 0.2 mg IV Q10M PRN Lactated Ringer's (Lactated Ringers 1000 Ml Bag*) 1,000 mls @ 125 mls/hr IV PER RATE CROW Acetaminophen (Ofirmev*) 1,000 mg in 100 mls @ 400 mls/hr IVPB ONCE ONE Ketorolac Tromethamine (Toradol Inj*) 15 mg IV PUSH Q6H PRN Lorazepam (Ativan Tab(*)) 0.5 mg PO Q6H PRN Metoprolol Succinate (Toprol Xl Tab*) 100 mg PO 2100 CROW Naloxone HCl (Narcan*) 0.08 mg IV Q2M PRN Ondansetron HCl (Zofran Inj*) 4 mg IV ONCE PRN Oxycodone HCl (Roxycodone Tab*) 5 mg PO Q4H PRN Oxycodone HCl (Roxycodone Tab*) 5 mg PO ONCE PRN Polyethylene Glycol/Electrolytes (Miralax*) 17 gm PO DAILY PRN Prochlorperazine Edisylate (Compazine Inj*) 2.5 mg IV ONCE PRN Senna (Senokot Tab*) 1 tab PO BEDTIME PRN Tramadol HCl (Ultram*) 50 mg PO Q6H PRN Vital Signs: Temp Pulse Resp BP Pulse Ox 97.1 F 65 14 120/65 94 05/23/18 15:09 05/23/18 15:09 05/23/18 15:09 05/23/18 15:09 05/23/18 15:09 Oxygen Devices in Use Now: None Appearance: Female lying in bed in NAD Eyes: No Scleral Icterus Ears/Nose/Mouth/Throat: Mucous Membranes Moist Neck: Trachea Midline Respiratory: Symmetrical Chest Expansion and Respiratory Effort, Clear to Auscultation Cardiovascular: NL Sounds; No Murmurs; No JVD, No Edema Abdominal: NL Sounds; No Tenderness; No Distention Lymphatic: No Cervical Adenopathy Extremities: No Edema Skin: No Rash or Ulcers Neurological: NL Muscle Strength and Tone, - - Sedated, arouses easily to voice , answers questions appropriately Nutrition: Taking PO's Result Diagrams: 05/19/18 06:19 05/18/18 21:05 Assess/Plan/Problems-Billing Assessment: Ms. Francis is an 83 y/o female with history of atrial fibrillation on xarelto admitted after a fall with hip and back pain found to have a L3-L4 disc protrusion with plans for surgery with Dr. Burgess on 05/23/18. - Patient Problems (1) Herniation of lumbar intervertebral disc Comment: - L3-L4 disc extrusion noted on MRI. - S/P surgery with Dr. Burgess today. - Patient's last dose of xarelto was 05/20 at 1000. She has no history of CVA and does not need bridging therapy but should resume xarelto when approved per neurosurgery in the post-operative period. - Encouraged IS, pain meds with bowel regimen, mobility in room as possible. (2) Atrial fibrillation Comment: - Rate controlled on metoprolol. - Xarelto on hold in anticipation of surgery. (3) Contusion of right hip Comment: - Hgb stable (4) Asthma Comment: - Asymptomatic, not on home meds. (5) DVT prophylaxis Comment: - Resume heparin SQ when approved per neurosurgery. (6) Full code status Comment: Status and Disposition: Inpatient. S/P surgery, may need rehab.
[2018-05-23] MEDS ORDERED: Acetaminophen IV 1GM/100ML * 100 ML ONE (14:09)
[2018-05-23] MEDS: Metoprolol Succinate XL TAB* 100 MG PO SCH (21:37)
[2018-05-24] MEDS: traMADol TAB* 50 MG PO PRN ×3 (07:01→23:26)
[2018-05-24] MEDS: Acetaminophen TAB* 325 MG PO SCH ×2 (08:10→20:51)
--- NOTE | 2018-05-24 08:16 | PN ---
Progress Note - Progress Note Date of Service: 05/24/18 SOAP: Subjective: [S/p lumbar discectomy L2-3 left, POD #1. Complains of low back pain and soreness post-op. Pain worse with movement in bed and getting up out of bed. Pain controlled with PO meds. Lower extremity symptoms improved. Has been up out of bed with assistance. Eating and drinking without difficulty. Denies fever, chills, headache. ] Objective: [Vital Signs: Temp Pulse Resp BP Pulse Ox 99.3 F 104 17 111/54 93 05/24/18 07:47 05/24/18 07:47 05/24/18 07:01 05/24/18 07:47 05/24/18 07:47 General: Alert and NAD. Neuro: Mild LLE weakness, sensation intact. Incision: Intact and without swelling, erythema, drainage. ] Assessment: [Satisfactory post-op. Will likely need rehab.] Plan: [1. PMRU referral 2. PT and OT consults 3. Restart xarelto 4. Continue pain management 5. Encourage up out of bed and ambulation]
[2018-05-24] MEDS: LORazepam TAB(*) 0.5 MG PO PRN (08:18)
[2018-05-24 08:27] LABS: ABS Basophils 0 10^3/ul (0-0.2); ABS Eosinophils 0.1 10^3/ul (0-0.6); ABS Monocytes 0.7 10^3/ul (0-0.8); ABS Neutrophils 5.7 10^3/ul (1.5-7.7); ABS Nucleated RBC 0 10^3/ul; Hematocrit 39 % (35-47); Hemoglobin 13.2 g/dl (12.0-16.0); Lymphocyte % 12.6 % (25-47); Mean Corpuscular HGB Conc 34 g/dl (31-36); Mean Corpuscular Hemoglobin 31 pg (27-31); Mean Corpuscular Volume 94 fL (80-97); Mean Platelet Volume 9.9 um3 (7.4-10.4); Nucleated Red Blood Cells % 0.1; Platelet Count 157 10^3/ul (150-450); Red Blood Count 4.19 10^6/ul (4.00-5.40); Red Cell Distribution Width 13 % (10.5-15); White Blood Count 7.6 10^3/ul (3.5-10.8)
--- NOTE | 2018-05-24 15:43 | PN ---
Subjective Date of Service: 05/24/18 Interval History: C/o lower back pain. States that back pain is tolerable at this time, denies numbness or weakness to leg. denies chest pain or shortness of breath. Denies n/v/d. Family History: Unchanged from Admission Social History: Unchanged from Admission Past Medical History: Unchanged from Admission Objective Active Medications: Acetaminophen (Tylenol Tab*) 975 mg PO BID [facility] Last Admin: 05/24/18 08:10 Dose: Not Given Albuterol (Ventolin 2.5 Mg/3 Ml Neb.Desire*) 2.5 mg INH Q4H PRN PRN Reason: SOB/WHEEZING Docusate Sodium (Colace Cap*) 100 mg PO BID PRN PRN Reason: CONSTIPATION Lactated Ringer's (Lactated Ringers 1000 Ml Bag*) 1,000 mls @ 125 mls/hr IV PER RATE [facility] Last Admin: 05/23/18 08:06 Dose: 125 mls/hr Ketorolac Tromethamine (Toradol Inj*) 15 mg IV PUSH Q6H PRN PRN Reason: PAIN Lorazepam (Ativan Tab(*)) 0.5 mg PO Q6H PRN PRN Reason: ANXIETY Last Admin: 05/24/18 08:18 Dose: 0.5 mg Metoprolol Succinate (Toprol Xl Tab*) 100 mg PO 2100 [facility] Last Admin: 05/23/18 21:37 Dose: Not Given Oxycodone HCl (Roxycodone Tab*) 5 mg PO Q4H PRN PRN Reason: PAIN Polyethylene Glycol/Electrolytes (Miralax*) 17 gm PO DAILY PRN PRN Reason: CONSTIPATION Senna (Senokot Tab*) 1 tab PO BEDTIME PRN PRN Reason: CONSTIPATION Tramadol HCl (Ultram*) 50 mg PO Q6H PRN PRN Reason: PAIN Last Admin: 05/24/18 07:01 Dose: 50 mg Vital Signs - 8 hr 05/24/18 05/24/18 05/24/18 07:47 08:00 08:18 Temperature 99.3 F Pulse Rate 104 Respiratory 18 18 Rate Blood Pressure 111/54 (mmHg) O2 Sat by Pulse 93 Oximetry 05/24/18 05/24/18 05/24/18 09:17 10:39 11:36 Temperature 98.5 F Pulse Rate 76 Respiratory 18 18 16 Rate Blood Pressure 105/52 (mmHg) O2 Sat by Pulse 96 Oximetry Oxygen Devices in Use Now: None Appearance: appears comfotable resting in bed Eyes: No Scleral Icterus Ears/Nose/Mouth/Throat: Clear Oropharnyx, Mucous Membranes Moist Neck: NL Appearance and Movements; NL JVP, Trachea Midline Respiratory: Symmetrical Chest Expansion and Respiratory Effort, Clear to Auscultation Cardiovascular: NL Sounds; No Murmurs; No JVD, RRR, No Edema Abdominal: NL Sounds; No Tenderness; No Distention Extremities: No Edema, No Clubbing, Cyanosis Skin: No Rash or Ulcers, No Nodules or Sclerosis, - - dressing intact to lower back, contusion to right hip Neurological: Alert and Oriented x 3 Nutrition: Taking PO's Result Diagrams: 05/24/18 06:46 05/18/18 21:05 Additional Lab and Data: . Microbiology and Other Data: . Diagnostic Imaging: . EKG Data: . Assess/Plan/Problems-Billing Assessment: Ms. Francis is an 83 y/o female with history of atrial fibrillation on xarelto admitted after a fall with hip and back pain found to have a L3-L4 disc protrusion with plans for surgery with Dr. Burgess on 05/23/18. - Patient Problems (1) Herniation of lumbar intervertebral disc Current Visit: Yes Status: Acute Code(s): M51.26 - OTHER INTERVERTEBRAL DISC DISPLACEMENT, LUMBAR REGION SNOMED Code(s): 812027704 Comment: - L3-L4 disc extrusion noted on MRI. - S/P surgery with Dr. Burgess today. - Encouraged IS, pain meds with bowel regimen, mobility in room as possible. - Xarelto was restarted today (2) Contusion of right hip Current Visit: Yes Status: Acute Code(s): S70.01XA - CONTUSION OF RIGHT HIP , INITIAL ENCOUNTER SNOMED Code(s): 43417707 Comment: - Hgb stable (3) Atrial fibrillation Current Visit: No Status: Chronic Code(s): I48.91 - UNSPECIFIED ATRIAL FIBRILLATION SNOMED Code(s): 33591733 Comment: - Rate controlled on metoprolol. - Xarelto will restart today as per Neurosurgery (4) DVT prophylaxis Current Visit: Yes Status: Acute Code(s): [id number] - SNOMED Code(s): 615988211 Comment: - Resume xarelto as per Neurosurgery (5) Full code status Current Visit: Yes Status: Acute Code(s): Z78.9 - OTHER SPECIFIED HEALTH STATUS SNOMED Code(s): 114928749 Comment: Status and Disposition: Inpatient. S/P surgery, referral to PMRU
--- NOTE | 2018-05-24 16:29 | CONS ---
INPATIENT CONSULTATION: DATE OF CONSULT: 05/20/18 CHIEF COMPLAINT: Left leg pain. HISTORY OF PRESENT ILLNESS: This 83-year-old lady developed severe left leg pain approximately 5 days prior to admission. She developed left leg pain and was given Flexeril and was seen by massage therapist. At home on 05/18/18, she became lightheaded after taking a Flexeril and fell landing on her right lateral thigh. She came to the emergency room for evaluation and at that time was admitted by the hospitalist service due to severe pain. Her history was significant for a previous diagnosis of atrial fibrillation, for which she was anticoagulated on Xarelto. At the time of admission, she complained of pain over her right femur where she fell, but her primary complaint was that of left thigh pain as well as left leg weakness. PAST MEDICAL HISTORY: Significant for atrial fibrillation and asthma. PAST SURGICAL HISTORY: Include cholecystectomy and hysterectomy. MEDICATIONS: At the time of admission included: 1. Flexeril 5 mg p.o. twice daily as needed for spasm. 2. Tramadol 50 mg p.o. q.6 hours as needed for pain. 3. Doxycycline 50 mg p.o. twice daily. 4. Xarelto 20 mg p.o. daily. 5. Metoprolol 100 mg p.o. daily. ALLERGIES: She is allergic to SULFA medication. FAMILY HISTORY: Family history was taken and did not contribute to this illness. SOCIAL HISTORY: Reveals that the patient lives alone and has a supportive system of friends. REVIEW OF SYSTEMS: A system review is significant primarily for neurologic review with left lower extremity weakness. Her cardiac review is significant for atrial fibrillation, on Xarelto. The remainder of her system review was performed and did not contribute to this illness. PHYSICAL EXAM: On examination, the patient was noted to be quite uncomfortable and complaining of left leg pain. Her blood pressure was 139/71 with a pulse of 90, and respirations of 16. HEENT exam was normal. Neck was supple. Lungs were clear to auscultation. Cardiovascular exam revealed an irregularly irregular heart rate consistent with atrial fibrillation. Abdomen was soft with normal bowel sounds and no tenderness. Extremities revealed marked bruising over the right hip. Neurological exam revealed moderate proximal hip flexor weakness in her left leg. She was able to flex to get the knees bilaterally. Straight leg raise test caused exquisite pain on the left side. DIAGNOSTIC STUDIES: An MRI of the lumbar spine was reviewed and showed what appeared to be a large extruded disk herniation at L2-L3 on the left side with superiorly migrated fragment. IMPRESSION: Herniated nucleus pulposus at L2-L3 on the left. PLAN: I am going to discontinue her Xarelto and tentatively schedule her for surgery on 05/23/18, pending medical clearance. Thank you for asking me to see this nice lady and I will follow her with you. [id number]/[facility] #: [id number] MTDD
--- NOTE | 2018-05-24 16:41 | RAD ---
HISTORY: LUMBAR DISCECTOMY L2-3 LEFT COMPARISONS: MRI dated May 19, 2018 VIEWS: 2 , Limited portable intraoperative views of the lumbar spine performed at 12:04 PM and 12:11 PM FINDINGS: Limited intraoperative views of the lumbar spine. Using the counting scheme described on MRI, counting from the transitional S1 vertebral body, a metallic probe is noted at the L3 pedicle. IMPRESSION: LIMITED INTRAOPERATIVE VIEW OF THE LUMBAR SPINE FOR LOCALIZATION DURING SPINAL SURGERY.
[2018-05-24] MEDS: Rivaroxaban TAB(*) 10 MG PO SCH (17:15)
[2018-05-24] MEDS: Metoprolol Succinate XL TAB* 100 MG PO SCH (20:51)
--- NOTE | 2018-05-25 04:15 | OP ---
DATE OF OPERATION: 05/23/18 - ROOM #334 DATE OF : 31 SURGEON: Vicente Burgess MD SHOE DRESSER: ABISAI Cardona ANESTHESIA: General. PRE-OP DIAGNOSIS: Herniated nucleus pulposus, L2-3 on the left. POST-OP DIAGNOSIS: Herniated nucleus pulposus, L2-3 on the left. OPERATIVE PROCEDURE: Lumbar diskectomy, L2-3 on the left with microdissection. DESCRIPTION OF PROCEDURE: After satisfactory general anesthesia was obtained, the patient was placed on the operating table in the prone position with the chest supported on the Mitch frame and the back slightly flexed. The lumbar region was then clipped, prepped and draped in a sterile manner for lumbar laminectomy and skin incision outlined from L2 to L3. This incision was infiltrated with 1% Xylocaine with epinephrine after which it was turned down sharply to the level of the lumbar fascia. The fascia was divided along the spinous processes from L2 to L3 and the paraspinal musculature was stripped away on the left side. An intraoperative x-ray was obtained verifying proper interspace localization after which a partial hemilaminectomy was carried out at L2-3 by moving the inferior aspect of L2 and the medial aspect of the facet complex with a combination of the Midas Dedrick drill and Kerrison rongeurs. This was carried superiorly until a majority of the left side of the L2 lamina had been removed. Preoperative x-ray studies had suggested a superior migration of a disk fragment almost up to the level of L1-2 interspace. After removing the lamina and ligamentum flavum, the operating microscope was brought into the field and the remainder of the procedure done under microscopic visualization. Additional lateral exposure was obtained. The L2 nerve root was identified and projecting into the axillary region of the L2 nerve root exposure was freely extruded degenerative disk material sitting behind the L2 vertebral body. Multiple fragments and disk materials were removed from this region. The disk space itself was noted to be flat and was not disturbed. At the end of the decompression, both the L2 and L3 nerves roots were noted to be free in their course. After assuring adequate hemostasis, the wound was thoroughly irrigated after which a piece of Gelfoam was placed over the laminectomy defect. The fascia was then reapproximated with 0 Vicryl sutures. The subcutaneous tissues were closed with 3-0 Vicryl suture and the skin closed with skin clips. The estimated blood loss was less than 50 cc and the final sponge, padding and needle counts were correct. The patient was taken to the recovery room, extubated, and in stable condition. [id number]/[facility] #: [id number] MTDD
[2018-05-25] MEDS: Acetaminophen TAB* 325 MG PO SCH ×2 (08:36→20:26)
--- NOTE | 2018-05-25 12:25 | PN ---
Progress Note - Progress Note Date of Service: 05/25/18 SOAP: Subjective: [S/p lumbar discectomy L2-3, POD #2. Patient feeling better today, complains primarily of incisional pain and mild LLE pain. Denies fever, chills, headache, chest pain, difficulty breathing. Has been up with assistance and walker. Participating in physical therapy. Is interested in PMRU. ] Objective: [ Vital Signs: Temp Pulse Resp BP Pulse Ox 97.0 F 109 14 96/55 99 05/25/18 11:49 05/25/18 11:49 05/25/18 11:49 05/25/18 11:49 05/25/18 11:49 General: Alert, sitting up in chair, NAD. Neuro: Stength 5/5 bilateral lower extremities, diminished sensation LLE. Incision: Intact and without swelling, erythema, drainage. ] Assessment: [Satisfactory post-op. Will need rehab.] Plan: [1. PMRU evaluation today. 2. Continue pain management. 3. Encourage up out of bed and ambulation. ]
--- NOTE | 2018-05-25 15:56 | PN ---
Subjective Date of Service: 05/25/18 Interval History: Patient reports that she is doing better today, c/o only of pain at the incision site and mild left hip pain from laying on left side. Does report mild dizziness when sitting in the chair. States was able to get out of bed and ambulated with walker. Was able to sit in the chair today. Denies chest pain or shortness of breath. Denies abd pain n/v/d Family History: Unchanged from Admission Social History: Unchanged from Admission Past Medical History: Unchanged from Admission Objective Active Medications: Acetaminophen (Tylenol Tab*) 975 mg PO BID [facility] Last Admin: 05/25/18 08:36 Dose: Not Given Albuterol (Ventolin 2.5 Mg/3 Ml Neb.Desire*) 2.5 mg INH Q4H PRN PRN Reason: SOB/WHEEZING Docusate Sodium (Colace Cap*) 100 mg PO BID PRN PRN Reason: CONSTIPATION Lactated Ringer's (Lactated Ringers 1000 Ml Bag*) 1,000 mls @ 125 mls/hr IV PER RATE [facility] Last Admin: 05/23/18 08:06 Dose: 125 mls/hr Lorazepam (Ativan Tab(*)) 0.5 mg PO Q6H PRN PRN Reason: ANXIETY Last Admin: 05/24/18 08:18 Dose: 0.5 mg Metoprolol Succinate (Toprol Xl Tab*) 100 mg PO 2100 [facility] Last Admin: 05/24/18 20:51 Dose: Not Given Oxycodone HCl (Roxycodone Tab*) 5 mg PO Q4H PRN PRN Reason: PAIN Polyethylene Glycol/Electrolytes (Miralax*) 17 gm PO DAILY PRN PRN Reason: CONSTIPATION Rivaroxaban (Xarelto(*)) 20 mg PO 1700 [facility] Last Admin: 05/24/18 17:15 Dose: 20 mg Senna (Senokot Tab*) 1 tab PO BEDTIME PRN PRN Reason: CONSTIPATION Tramadol HCl (Ultram*) 50 mg PO Q6H PRN PRN Reason: PAIN Last Admin: 05/24/18 23:26 Dose: 50 mg Vital Signs - 8 hr 05/25/18 05/25/18 05/25/18 07:57 08:30 11:49 Temperature 97.8 F 97.0 F Pulse Rate 116 109 Respiratory 16 18 14 Rate Blood Pressure 104/54 96/55 (mmHg) O2 Sat by Pulse 93 99 Oximetry Oxygen Devices in Use Now: None Appearance: appears comfotable resting in bed. Eyes: No Scleral Icterus Ears/Nose/Mouth/Throat: Clear Oropharnyx, Mucous Membranes Moist Neck: NL Appearance and Movements; NL JVP, Trachea Midline Respiratory: Symmetrical Chest Expansion and Respiratory Effort, Clear to Auscultation Cardiovascular: NL Sounds; No Murmurs; No JVD, RRR, No Edema Abdominal: NL Sounds; No Tenderness; No Distention Extremities: No Edema, No Clubbing, Cyanosis, - - ecchymotic area noted to right hip unchanged, Skin: No Rash or Ulcers, - - lumbar dressing intact , no drainage noted to dressing Neurological: Alert and Oriented x 3 Nutrition: Taking PO's Result Diagrams: 05/24/18 06:46 05/18/18 21:05 Additional Lab and Data: . Microbiology and Other Data: . Diagnostic Imaging: . EKG Data: . Assess/Plan/Problems-Billing Assessment: Ms. Francis is an 83 y/o female with history of atrial fibrillation on xarelto admitted after a fall with hip and back pain found to have a L3-L4 disc protrusion with plans for surgery with Dr. Burgess on 05/23/18. - Patient Problems (1) Herniation of lumbar intervertebral disc Current Visit: Yes Status: Acute Code(s): M51.26 - OTHER INTERVERTEBRAL DISC DISPLACEMENT, LUMBAR REGION SNOMED Code(s): 424134029 Comment: - L3-L4 disc extrusion noted on MRI. - S/P surgery with Dr. Burgess 05/23/18 - Encouraged IS, pain meds with bowel regimen, mobility in room as possible. - Xarelto was restarted 05/24/18 (2) Contusion of right hip Current Visit: Yes Status: Acute Code(s): S70.01XA - CONTUSION OF RIGHT HIP , INITIAL ENCOUNTER SNOMED Code(s): 99484619 Comment: - Hgb stable (3) Atrial fibrillation Current Visit: No Status: Chronic Code(s): I48.91 - UNSPECIFIED ATRIAL FIBRILLATION SNOMED Code(s): 71276601 Comment: - Rate controlled on metoprolol. - Xarelto will restarted as per Neurosurgery (4) DVT prophylaxis Current Visit: Yes Status: Acute Code(s): IWU6739 - SNOMED Code(s): 590039743 Comment: - Resume xarelto as per Neurosurgery (5) Full code status Current Visit: Yes Status: Acute Code(s): Z78.9 - OTHER SPECIFIED HEALTH STATUS SNOMED Code(s): 905524018 Comment: Status and Disposition: Inpatient. S/P surgery, referral to PMRU waiting for bed offer
[2018-05-25] MEDS: Rivaroxaban TAB(*) 10 MG PO SCH (17:45)
[2018-05-25] MEDS: LORazepam TAB(*) 0.5 MG PO PRN (20:32)
[2018-05-25] MEDS: Metoprolol Succinate XL TAB* 100 MG PO SCH (20:32)
[2018-05-25] MEDS: traMADol TAB* 50 MG PO PRN (20:33)
[2018-05-26] MEDS: Acetaminophen TAB* 325 MG PO SCH ×2 (07:51→20:11)
--- NOTE | 2018-05-26 08:12 | PN ---
Progress Note - Progress Note Date of Service: 05/26/18 SOAP: Subjective: [S/p lumbar discectomy L2-3, POD#3 Complains of incisional pain and mild numbness/tingling in LLE. Ambulates with assistance of walker. She has been up out of bed and mobility is improved. Denies nausea, chest pain, fever, headache. ] Objective: [ Vital Signs: Temp Pulse Resp BP Pulse Ox 98.5 F 102 18 99/64 99 05/26/18 11:22 05/26/18 11:22 05/26/18 13:05 05/26/18 11:22 05/26/18 11:22 General: Alert and no acute pain. Neuro: Strength 5/5 bilateral lower extremities. Sensation diminished LLE. Incision: Intact with tamiko. Dressing changed today. No swelling, erythema, infection. ] Assessment: [Satisfactory post op. Awaiting acceptance to rehab.] Plan: [1. Rehab when bed is available. 2. Continue pain management. 3. Continue PT and encourage up out of bed.]
[2018-05-26] MEDS: traMADol TAB* 50 MG PO PRN (13:05)
--- NOTE | 2018-05-26 15:03 | PN ---
Subjective Date of Service: 05/26/18 Interval History: Report that back pain has improved. states that leg pain has improved as well. Denies any chest pain or shortness of breath. Denies abd pain , n/v/d. Discussed discharge for Tuesday to [facility]. Family History: Unchanged from Admission Social History: Unchanged from Admission Past Medical History: Unchanged from Admission Objective Active Medications: Acetaminophen (Tylenol Tab*) 975 mg PO BID [facility] Last Admin: 05/26/18 07:51 Dose: Not Given Albuterol (Ventolin 2.5 Mg/3 Ml Neb.Desire*) 2.5 mg INH Q4H PRN PRN Reason: SOB/WHEEZING Docusate Sodium (Colace Cap*) 100 mg PO BID PRN PRN Reason: CONSTIPATION Lactated Ringer's (Lactated Ringers 1000 Ml Bag*) 1,000 mls @ 125 mls/hr IV PER RATE [facility] Last Admin: 05/23/18 08:06 Dose: 125 mls/hr Metoprolol Succinate (Toprol Xl Tab*) 100 mg PO 2100 [facility] Last Admin: 05/25/18 20:32 Dose: 100 mg Oxycodone HCl (Roxycodone Tab*) 5 mg PO Q4H PRN PRN Reason: PAIN Polyethylene Glycol/Electrolytes (Miralax*) 17 gm PO DAILY PRN PRN Reason: CONSTIPATION Rivaroxaban (Xarelto(*)) 20 mg PO 1700 [facility] Last Admin: 05/25/18 17:45 Dose: 20 mg Senna (Senokot Tab*) 1 tab PO BEDTIME PRN PRN Reason: CONSTIPATION Tramadol HCl (Ultram*) 50 mg PO Q6H PRN PRN Reason: PAIN Last Admin: 05/26/18 13:05 Dose: 50 mg Vital Signs - 8 hr 05/26/18 05/26/18 05/26/18 07:14 07:30 11:22 Temperature 98.3 F 98.5 F Pulse Rate 64 102 Respiratory 14 18 16 Rate Blood Pressure 98/59 99/64 (mmHg) O2 Sat by Pulse 97 99 Oximetry 05/26/18 13:05 Temperature Pulse Rate Respiratory 18 Rate Blood Pressure (mmHg) O2 Sat by Pulse Oximetry Oxygen Devices in Use Now: None Appearance: appears comfortable sitting in the chair, no acute distress. Eyes: No Scleral Icterus Ears/Nose/Mouth/Throat: Clear Oropharnyx Neck: NL Appearance and Movements; NL JVP, Trachea Midline Respiratory: Symmetrical Chest Expansion and Respiratory Effort, Clear to Auscultation Cardiovascular: NL Sounds; No Murmurs; No JVD Abdominal: NL Sounds; No Tenderness; No Distention Extremities: No Edema, No Clubbing, Cyanosis Skin: No Rash or Ulcers, - - dressing intact to lumbar region Neurological: Alert and Oriented x 3 Nutrition: Taking PO's Result Diagrams: 05/24/18 06:46 05/18/18 21:05 Additional Lab and Data: . Microbiology and Other Data: . Diagnostic Imaging: . EKG Data: . Assess/Plan/Problems-Billing Assessment: Ms. Francis is an 83 y/o female with history of atrial fibrillation on xarelto admitted after a fall with hip and back pain found to have a L3-L4 disc protrusion with plans for surgery with Dr. Burgess on 05/23/18. - Patient Problems (1) Herniation of lumbar intervertebral disc Current Visit: Yes Status: Acute Code(s): M51.26 - OTHER INTERVERTEBRAL DISC DISPLACEMENT, LUMBAR REGION SNOMED Code(s): 245725880 Comment: - L3-L4 disc extrusion noted on MRI. - S/P surgery with Dr. Burgess 05/23/18 - Encouraged IS, pain meds with bowel regimen, mobility in room as possible. - Xarelto was restarted 05/24/18 (2) Contusion of right hip Current Visit: Yes Status: Acute Code(s): S70.01XA - CONTUSION OF RIGHT HIP , INITIAL ENCOUNTER SNOMED Code(s): 10848933 Comment: - Hgb stable (3) Atrial fibrillation Current Visit: No Status: Chronic Code(s): I48.91 - UNSPECIFIED ATRIAL FIBRILLATION SNOMED Code(s): 56191050 Comment: - Rate controlled on metoprolol. - Xarelto will restarted as per Neurosurgery (4) DVT prophylaxis Current Visit: Yes Status: Acute Code(s): VJR9290 - SNOMED Code(s): 322451776 Comment: - Resume xarelto as per Neurosurgery (5) Full code status Current Visit: Yes Status: Acute Code(s): Z78.9 - OTHER SPECIFIED HEALTH STATUS SNOMED Code(s): 718492680 Comment: Status and Disposition: discharge to [facility] Tuesday
[2018-05-26] MEDS: Rivaroxaban TAB(*) 10 MG PO SCH (17:24)
[2018-05-26] MEDS: Metoprolol Succinate XL TAB* 100 MG PO SCH (20:12)
[2018-05-26] MEDS: LORazepam TAB(*) 0.5 MG PO SCH (21:59)
[2018-05-27 05:43] LABS: Hematocrit 40 % (35-47); Hemoglobin 13.4 g/dl (12.0-16.0); Mean Corpuscular HGB Conc 34 g/dl (31-36); Mean Corpuscular Hemoglobin 32 pg (27-31); Mean Corpuscular Volume 94 fL (80-97); Red Blood Count 4.24 10^6/ul (4.00-5.40); Red Cell Distribution Width 13 % (10.5-15); White Blood Count 8.8 10^3/ul (3.5-10.8)
[2018-05-27 05:55] LABS: EGFR Non-African American 98.8 (>60)
[2018-05-27 06:14] LABS: ABS Basophils 0.1 10^3/ul (0-0.2); ABS Eosinophils 0.5 10^3/ul (0-0.6); ABS Lymphocytes 1.8 10^3/ul (1.0-4.8); ABS Monocytes 0.7 10^3/ul (0-0.8); ABS Neutrophils 5.7 10^3/ul (1.5-7.7); ABS Nucleated RBC 0 10^3/ul; Eosinophil % 5.3 % (0-6); Lymphocyte % 20.9 % (25-47); Mean Platelet Volume 9.7 um3 (7.4-10.4); Nucleated Red Blood Cells % 0; Platelet Count 189 10^3/ul (150-450)
[2018-05-27] MEDS: Acetaminophen TAB* 325 MG PO SCH ×2 (08:39→20:08)
--- NOTE | 2018-05-27 15:50 | PN ---
Subjective Date of Service: 05/27/18 Interval History: Ms. Francis reports some continued back pain with some left lower leg pain and numbness--all much better than before surgery. She denies other complaint including chest pain, SOB, nausea, or abdominal pain. Objective Active Medications: Acetaminophen (Tylenol Tab*) 975 mg PO BID [facility] Albuterol (Ventolin 2.5 Mg/3 Ml Neb.Desire*) 2.5 mg INH Q4H PRN Docusate Sodium (Colace Cap*) 100 mg PO BID PRN Lactated Ringer's (Lactated Ringers 1000 Ml Bag*) 1,000 mls @ 125 mls/hr IV PER RATE [facility] Lorazepam (Ativan Tab(*)) 0.5 mg PO BEDTIME [facility] Metoprolol Succinate (Toprol Xl Tab*) 100 mg PO 2100 [facility] Oxycodone HCl (Roxycodone Tab*) 5 mg PO Q4H PRN Polyethylene Glycol/Electrolytes (Miralax*) 17 gm PO DAILY PRN Rivaroxaban (Xarelto(*)) 20 mg PO 1700 [facility] Senna (Senokot Tab*) 1 tab PO BEDTIME PRN Tramadol HCl (Ultram*) 50 mg PO Q6H PRN Vital Signs: Temp Pulse Resp BP Pulse Ox 98.1 F 71 16 115/58 99 05/27/18 07:15 05/27/18 15:14 05/27/18 15:14 05/27/18 07:15 05/27/18 15:14 Oxygen Devices in Use Now: None Appearance: Female lying in bed in NAD Eyes: No Scleral Icterus Ears/Nose/Mouth/Throat: Mucous Membranes Moist Neck: Trachea Midline Respiratory: Symmetrical Chest Expansion and Respiratory Effort, Clear to Auscultation Cardiovascular: NL Sounds; No Murmurs; No JVD, No Edema Abdominal: NL Sounds; No Tenderness; No Distention Lymphatic: No Cervical Adenopathy Extremities: No Edema Skin: No Rash or Ulcers Neurological: Alert and Oriented x 3, NL Muscle Strength and Tone Nutrition: Taking PO's Result Diagrams: 05/27/18 05:21 05/27/18 05:21 Assess/Plan/Problems-Billing Assessment: Ms. Francis is an 83 y/o female with history of atrial fibrillation on xarelto admitted after a fall with hip and back pain found to have a L3-L4 disc protrusion with plans for surgery with Dr. Burgess on 05/23/18. - Patient Problems (1) Herniation of lumbar intervertebral disc Comment: - L3-L4 disc extrusion noted on MRI. - S/P surgery with Dr. Burgess 05/23/18 - Encouraged IS, pain meds with bowel regimen, mobility in room as possible. - Xarelto was restarted 05/24/18 (2) Atrial fibrillation Comment: - Rate controlled on metoprolol. - Continue xarelto. (3) Contusion of right hip Comment: - Hgb stable (4) Asthma Comment: - Asymptomatic, not on home meds. (5) DVT prophylaxis Comment: - Xarelto (6) Full code status Comment: Status and Disposition: Plan for discharge to [facility] Tuesday
[2018-05-27] MEDS: Rivaroxaban TAB(*) 10 MG PO SCH (17:11)
[2018-05-27] MEDS: Metoprolol Succinate XL TAB* 100 MG PO SCH ×2 (20:08→21:50)
[2018-05-27] MEDS: LORazepam TAB(*) 0.5 MG PO SCH (21:36)
[2018-05-27] MEDS: traMADol TAB* 50 MG PO PRN (23:54)
[2018-05-28] MEDS: Acetaminophen TAB* 325 MG PO SCH ×2 (08:42→21:28)
--- NOTE | 2018-05-28 10:36 | PN ---
Progress Note - Progress Note Date of Service: 05/28/18 SOAP: Subjective: [S/p L2-3 lumbar discectomy, POD #5. Feeling well this morning although complains of LLE pain, back pain with movement. Was up to the chair often yesterday. Denies fever, chills, headache, nausea. Eating and drinking well. Participating in PT. ] Objective: [ Vital Signs: Temp Pulse Resp BP Pulse Ox 98.2 F 51 16 112/60 97 05/28/18 07:16 05/28/18 07:16 05/28/18 08:00 05/28/18 07:16 05/28/18 07:16 General: Pleasant this morning. Alert and laying comfortably in bed. Neuro: Strength 5/5 bilateral lower extremities, mild LLE numbness. ] Assessment: [Satisfactory post-op. ] Plan: [1. Rehab at [facility] tomorrow, follow up in office week of 06/05. 2. Continue pain management. 3. Encourage up out of bed and ambulation. 4. Continue PT.]
[2018-05-28] MEDS: Rivaroxaban TAB(*) 10 MG PO SCH (17:45)
[2018-05-28] MEDS: LORazepam TAB(*) 0.5 MG PO SCH (21:29)
[2018-05-28] MEDS: Metoprolol Succinate XL TAB* 100 MG PO SCH (21:29)
[2018-05-28] MEDS: traMADol TAB* 50 MG PO PRN (21:29)
--- NOTE | 2018-05-29 03:49 | DS ---
CC: Dr. Mi * [facility] MEDICINE DISCHARGE SUMMARY: DATE OF ADMISSION: 05/18/18. DATE OF ANTICIPATED DISCHARGE: 05/29/18. PRIMARY CARE PHYSICIAN: Dr. Mi. ATTENDING PHYSICIAN: Dr. Barry Hendrix * (dictation provided by Maureen Ervin NP). PRIMARY DIAGNOSIS: L3-L4 disk extrusion, status post diskectomy on the left with Dr. Burgess. SECONDARY DIAGNOSES: 1. Atrial fibrillation. 2. Asthma. PAST SURGICAL HISTORY: 1. Cholecystectomy. 2. EVIN-BSO. MEDICATIONS AT THE TIME OF DISCHARGE: Are: 1. Metoprolol succinate 100 mg p.o. daily. 2. Tramadol 50 mg p.o. q.6 hours p.r.n. 3. Senna 1 tab p.o. at bedtime p.r.n. 4. Rivaroxaban 20 mg p.o. daily. 5. Polyethylene glycol 17 g p.o. daily p.r.n. 6. Docusate 100 mg p.o. b.i.d. p.r.n. 7. Tylenol 650 mg p.o. q.4 hours p.r.n. HOSPITAL COURSE: Ms. Francis is an 83-year-old female with a past medical history of asthma, who presented to the hospital on 05/18/18 with concern for back pain radiating into the left hip and leg with fall. Please see the dictated H and P from Анна Bro DO, for complete details. In brief, the patient states that she had fell about a week prior to admission and had had ongoing back pain despite massage therapy and use of Flexeril and tramadol. The patient fell again at home and therefore presented to the emergency room for evaluation. In the emergency room, her workup included a hip x-ray, which is read as follows: "No radiographic evidence for hip fracture." There is a femur x-ray, which is read as follows: "No radiographic evidence for fracture." A lumbar spine MRI showed "epidural soft tissue density at L3 and imaging apparently suggestive of a large superior disk extrusion from L3-L4, though spinal meningioma or possible schwannoma are also within the differential diagnosis." Patient went on for consultation with neurosurgery, who deemed that she needed operative intervention which she had on 05/24/18 with an L3-L4 diskectomy. In the postoperative period, Ms. Francis has been doing quite well. She has decreased pain both in her back and in her left leg. She is able to ambulate more independently. However, Ms. Francis continues to need physical therapy and assistance for returning home to independent living and has been deemed an appropriate candidate for subacute rehab at [facility]. Ms. Francis will be discharged to [facility] in the a.m. when the bed is available. DISPOSITION: To [facility]. DIET: Low fat, low salt. ACTIVITY: As tolerated with instructions as outlined in the discharge for do not take a bath, but to shower only. FOLLOW-UP PLANS: 1. Please followup with Dr. Burgess the week of 06/05/18. The [facility] is to call for an appointment. 2. Please followup with Dr. Mi at the time of discharge from [facility]. Approximately 60 minutes were spent in the discharge of this patient, more than half that time was spent with the patient at the bedside reviewing the events leading up to this and during this hospitalization, performing the physical examination, and reviewing the plan of care. MAUREEN ERVIN NP [id number]/[facility] #: [id number] LESTER
[2018-05-29 07:34] VITALS: BP 104/61
[2018-05-29] MEDS: Acetaminophen TAB* 325 MG PO SCH (08:30)
== END 2018-05-29 10:35 | DRG 520 ==
LOC: ED 19:00 → MED 22:18 → OBSVTOIN 05-19 13:48 → MED 05-20 12:33 → SSU 05-23 14:57
PROVIDERS: ADMIT Hospitalist; ATTEND Internal Medicine
PROC: 0SB20ZZ Excision of Lumbar Vertebral Disc, Open Approach (ICD-10-PCS; principal; 2018-05-23 11:15)
DX: M51.26 Other intervertebral disc displacement, lumbar region (principal); I48.91 Unspecified atrial fibrillation; J45.909 Unspecified asthma, uncomplicated; W19.XXXA Unspecified fall, initial encounter; I10 Essential (primary) hypertension; H26.9 Unspecified cataract; M85.88 Other specified disorders of bone density and structure, other site; M47.9 Spondylosis, unspecified; I73.9 Peripheral vascular disease, unspecified; S70.01XA Contusion of right hip, initial encounter; M25.552 Pain in left hip; Z90.710 Acquired absence of both cervix and uterus; Z90.722 Acquired absence of ovaries, bilateral; Z79.01 Long term (current) use of anticoagulants; Y92.009 Unspecified place in unspecified non-institutional (private) residence as the place of occurrence of the external cause; Z88.2 Allergy status to sulfonamides; Z82.49 Family history of ischemic heart disease and other diseases of the circulatory system; Z82.69 Family history of other diseases of the musculoskeletal system and connective tissue; Z91.018 Allergy to other foods; Z87.01 Personal history of pneumonia (recurrent); Z90.49 Acquired absence of other specified parts of digestive tract
CPT/HCPCS: 36415; 72100; 72148; 73523; 80048; 80053; 81003; 84443; 84484; 85025; 85027; 85730; 88304; 93005; 99282; A9270-GY; G8978-GP-CI; G8978-GP-CJ; G8978-GP-CK; G8978-GP-CM; G8979-GP-CH; G8979-GP-CI; G8979-GP-CK; G8979-GP-CL; G8987-GO-CL; G8988-GO-CI; J0690; J1644; J1885; J2060; J2405; J2704; J3010; J3490

== ENCOUNTER 2019-04-23 18:33 | Emergency (ER) | payer MEDICARE ==
[2019-04-23 21:14] LABS: ABS Eosinophils 0.1 10^3/ul (0-0.6); ABS Lymphocytes 1.2 10^3/ul (1.0-4.8); ABS Monocytes 0.7 10^3/ul (0-0.8); ABS Neutrophils 3.4 10^3/ul (1.5-7.7); Hematocrit 40 % (35-47); Hemoglobin 13.6 g/dL (12.0-16.0); Lymphocyte % 21.7 %; Mean Corpuscular HGB Conc 34 g/dL (31-36); Mean Corpuscular Hemoglobin 31 pg (27-31); Mean Corpuscular Volume 93 fL (80-97); Mean Platelet Volume 9.1 fL (7.4-10.4); Platelet Count 173 10^3/uL (150-450); Red Blood Count 4.35 10^6 /uL (3.70-4.87); Red Cell Distribution Width 13 % (10-15); White Blood Count 5.4 10^3/uL (3.5-10.8)
[2019-04-23 21:30] LABS: Albumin 3.9 g/dL (3.2-5.2); Albumin/Globulin Ratio 1.1 (1-3); BUN/Creatinine Ratio 33.8 (8-20); Calcium 9.4 mg/dL (8.6-10.3); EGFR African American 99.3 (>60); Globulin 3.5 g/dL (2-4); Potassium 4.2 mmol/L (3.5-5.0); Total Bilirubin 0.6 mg/dL (0.2-1.0); Total Protein 7.4 g/dL (6.4-8.9)
--- NOTE | 2019-04-23 22:32 | ED ---
Respiratory - HPI Summary HPI Summary: Patient is a 84 y/o F w/ Hx of PNA, afib, asthma who presents to ED with complaints of SOB, nasal congestion, and a cough productive of yellow phlegm since two days ago. She states that she was evaluated by her PCP today, PCP told the patient to come to [facility] to receive antibiotics to prevent PNA from possibly developing. She has never smoked and denies Hx of COPD. On triage, nothing is noted to aggravate/alleviate Sx. Home medications and allergies are reviewed. - History of Current Complaint Chief Complaint: LauraespSilviapldevan Stated Complaint: DR SENT OVER AFTER LISTENING TO MY LUNGS PER PT Time Seen by Provider: 04/23/19 22:01 Hx Obtained From: Patient Onset/Duration: Lasting Days - two days ago, Still Present Timing: Constant Current Severity: None Pain Intensity: 0 Sputum Color: Yellow Aggravating Factor(s): Nothing Alleviating Factor(s): Nothing Associated Signs and Symptoms: SOB, Nasal Congestion - Allergy/Home Medications Allergies/Adverse Reactions: Allergies Allergy/AdvReac Type Severity Reaction Status Date / Time Sulfa (Sulfonamide Allergy Unknown Verified 04/23/19 18:44 Antibiotics) Reaction Details liver-organ meat Allergy Unknown Uncoded 05/18/18 19:59 Reaction Details PMH/Surg Hx/FS Hx/Imm Hx Endocrine/Hematology History: Reports: Hx Anticoagulant Therapy Denies: Hx Diabetes Cardiovascular History: Reports: Hx Atrial Fibrillation Denies: Hx Hypertension, Hx Pacemaker/ICD Respiratory History: Reports: Hx Asthma, Hx Pneumonia, Other Respiratory Problems/Disorders - HX OF PNUEMONIA Denies: Hx Chronic Obstructive Pulmonary Disease (COPD) History: Denies: Hx Dialysis Musculoskeletal History: Reports: Hx Orthopedic Injury - broke left foot approximately 40 years ago Sensory History: Reports: Hx Cataracts, Hx Contacts or Glasses - reading only Denies: Hx Hearing Aid Opthamlomology History: Reports: Hx Cataracts, Hx Contacts or Glasses - reading only Neurological History: Denies: Hx Dementia, Hx Seizures Psychiatric History: Denies: Hx Panic Disorder - Cancer History Cancer Type, Location and Year: uterine cancer 2010 Hx Chemotherapy: No - Surgical History Surgery Procedure, Year, and Place: cholecystectomy, hysterectomy Infectious Disease History: No Infectious Disease History: Denies: Traveled Outside the [place] in Last 30 Days - Family History Known Family History: Negative: Hypertension - Social History Alcohol Use: unk Substance Use Type: Reports: None Smoking Status (MU): Never Smoked Tobacco Review of Systems Positive: Nasal Discharge - congestion Positive: Shortness Of Breath, Cough All Other Systems Reviewed And Are Negative: Yes Physical Exam - Summary Physical Exam Summary: VITAL SIGNS: Reviewed. GENERAL: Patient is a well-developed and nourished female who is lying comfortable in the stretcher. Patient is not in any acute respiratory distress. HEAD AND FACE: No signs of trauma. No ecchymosis, hematomas or skull depressions. No sinus tenderness. EYES: PERRLA, EOMI x 2, No injected conjunctiva, no nystagmus. EARS: Hearing grossly intact. Ear canals and tympanic membranes are within normal limits. MOUTH: Oropharynx within normal limits. NECK: Supple, trachea is midline, no adenopathy, no JVD, no carotid bruit, no c- spine tenderness, neck with full ROM CHEST: Symmetric, no tenderness at palpation LUNGS: Bilateral expiratory wheezes CVS: Regular rate and rhythm, S1 and S2 present, no murmurs or gallops appreciated. ABDOMEN: Soft, non-tender. No signs of distention. No rebound no guarding, and no masses palpated. Bowel sounds are normal. EXTREMITIES: FROM in all major joints, no edema, no cyanosis or clubbing. NEURO: Alert and oriented x 3. No acute neurological deficits. Speech is normal and follows commands. SKIN: Dry and warm Triage Information Reviewed: Yes Vital Signs On Initial Exam: Initial Vitals Temp Pulse Resp BP Pulse Ox 98.3 F 93 20 113/82 93 04/23/19 18:38 04/23/19 18:38 04/23/19 18:38 04/23/19 18:38 04/23/19 18:38 Vital Signs Reviewed: Yes Diagnostics - Vital Signs Vital Signs Temp Pulse Resp BP Pulse Ox 04/23/19 20:56 98.0 F 114 19 137/74 95 04/23/19 18:38 98.3 F 93 20 113/82 93 - Laboratory Lab Results: Lab Results 04/23/19 04/23/19 Range/Units 21:06 21:06 WBC 5.4 (3.5-10.8) 10^3/uL RBC 4.35 (3.70-4.87) 10^6 /uL Hgb 13.6 (12.0-16.0) g/dL Hct 40 (35-47) % MCV 93 (80-97) fL MCH 31 (27-31) pg MCHC 34 (31-36) g/dL RDW 13 (10-15) % Plt Count 173 (150-450) 10^3/uL MPV 9.1 (7.4-10.4) fL Neut % (Auto) 62.7 % Lymph % (Auto) 21.7 % [place] % (Auto) 13.0 % Eos % (Auto) 2.0 % Baso % (Auto) 0.6 % Absolute Neuts (auto) 3.4 (1.5-7.7) 10^3/ul Absolute Lymphs (auto) 1.2 (1.0-4.8) 10^3/ul Absolute Monos (auto) 0.7 (0-0.8) 10^3/ul Absolute Eos (auto) 0.1 (0-0.6) 10^3/ul Absolute Basos (auto) 0.0 (0-0.2) 10^3/ul Absolute Nucleated RBC 0.0 10^3/ul Nucleated RBC % 0.0 Sodium 130 L (135-145) mmol/L Potassium 4.2 (3.5-5.0) mmol/L Chloride 97 L (101-111) mmol/L Carbon Dioxide 26 (22-32) mmol/L Anion Gap 7 (2-11) mmol/L BUN 23 (6-24) mg/dL Creatinine 0.68 (0.51-0.95) mg/dL Est GFR ( Amer) 99.3 (>60) Est GFR (Non-Af Amer) 82.0 (>60) BUN/Creatinine Ratio 33.8 H (8-20) Glucose 232 H (70-100) mg/dL Calcium 9.4 (8.6-10.3) mg/dL Total Bilirubin 0.60 (0.2-1.0) mg/dL AST 18 (13-39) U/L ALT 11 (7-52) U/L Alkaline Phosphatase 72 (34-104) U/L Total Protein 7.4 (6.4-8.9) g/dL Albumin 3.9 (3.2-5.2) g/dL Globulin 3.5 (2-4) g/dL Albumin/Globulin Ratio 1.1 (1-3) Result Diagrams: 04/23/19 21:06 04/23/19 21:06 Lab Statement: Any lab studies that have been ordered have been reviewed, and results considered in the medical decision making process. - Radiology CXR Radiology Interpretation Completed By: ED Physician Summary of Radiographic Findings: CXR WAS NAD, PENDING OFFICIAL REPORT Re-Evaluation - Re-Evaluation First Eval Re-Evaluation Time: 00:35 Comment: 0035 - Results of labs and tests were discussed with the patient. Discharge to home was discussed with the patient. The patient wants to be admitted. Long conversation was had with regards to the unnecessary nature of admission for the patient, but the patient remains insistent on admission. Second Eval Re-Evaluation Time: 00:54 Comment: After the nature of a longterm admission was discussed, patient is agreeable with discharge to home. She was prescribed levaquin, deltasone, albuterol inhaler and given PCP follow up. Disposition - Course Course Of Treatment: Patient is a 84 y/o F w/ Hx of PNA, afib, asthma who presents to ED with complaints of SOB, nasal congestion, and a cough productive of yellow phlegm since two days ago. She states that she was evaluated by her PCP today, PCP told the patient to come to [facility] to receive antibiotics to prevent PNA from possibly developing. She has never smoked and denies Hx of COPD. On physical exam, bilateral expiratory wheezes are noted. Labs showed sodium 130, chloride 97, BUN/creatinine ratio 33.8, glucose 232. CXR was NAD. During ED course, patient received deltasone tab 50 mg PO, Levaquin 750 mg PO duoneb 1 neb INH, albuterol 2.5 mg INH, 2 doses, and albuterol inhaler 2 puffs. 0035 - Results of labs and tests were discussed with the patient. Discharge to home was discussed with the patient. The patient wants to be admitted. Long conversation was had with regards to the unnecessary nature of admission for the patient, but the patient remains insistent on admission. Patient's case was discussed with Dr. Salinas, Dr. Salinas notes that the patient will be a longterm admission. This will be discussed with the patient. After the nature of a longterm admission was discussed, patient is agreeable with discharge to home. She was prescribed levaquin, deltasone, albuterol inhaler and given PCP follow up. - Diagnoses Provider Diagnoses: Bronchitis - Physician Notifications Discussed Care Of Patient With: Anahi Salinas Time Discussed With Above Provider: 00:41 Instructed by Provider To: Other - Patient's case was discussed with Dr. Salinas, Dr. Salinas notes that the patient will be a longterm admission. This will be discussed with the patient. Discharge - Sign-Out/Discharge Documenting (check all that apply): Patient Departure - discharge Patient Received Moderate/Deep Sedation with Procedure: No - Discharge Plan Condition: Stable Disposition: HOME Prescriptions: Albuterol HFA INHALER* [Ventolin HFA Inhaler*] 2 puff INH Q6H PRN #1 mdi PRN Reason: Shortness Of Breath Levofloxacin TAB* [Levaquin TAB*] 750 mg PO DAILY #7 tab predniSONE TAB* [Deltasone TAB*] 50 mg PO DAILY #5 tab Patient Education Materials: Acute Bronchitis (ED) Referrals: Tino Mi MD [Primary Care Provider] - 3 Days Additional Instructions: PLEASE RETURN TO THE ED IMMEDIATELY FOR WORSENING OR CONCERNING SYMPTOMS. FOLLOW UP WITH YOUR PRIMARY CARE PHYSICIAN WITHIN THREE DAYS. - Attestation Statements Document Initiated by Scribe: Yes Documenting Scribe: ALICIA HESS Provider For Whom Aniceto is Documenting (Include Credential): JOSH SANFORD MD Scribe Attestation: ALICIA Bonilla, scribed for JOSH SANFORD MD on 04/24/19 at 0223. Status of Scribe Document: Ready
[2019-04-23] MEDS ORDERED: predniSONE TAB* 50 MG PO ONE (22:34)
[2019-04-23] MEDS ORDERED: Albuterol/Ipratropium NEB.SOL* Albuterol 2.5 MG/Ipratropium 0.5 MG 3 ML INH ONE (22:34)
[2019-04-23] MEDS ORDERED: Levofloxacin TAB* 250 MG PO ONE (22:35)
[2019-04-23] MEDS: Albuterol 2.5 MG/3 ML NEB.SOL* (0.083%) INH SCH ×2 (23:00→23:10)
[2019-04-24] MEDS ORDERED: Albuterol HFA INHALER* 8 gm MDI INH SCH (01:00)
[2019-04-24] MEDS ORDERED: Albuterol HFA INHALER* 8 gm MDI INH ONE (01:01)
[2019-04-24 01:30] VITALS: BP 125/77
== END 2019-04-24 01:28 | disposition home or self-care (01) ==
LOC: ED 18:33
DX: J40 Bronchitis, not specified as acute or chronic (principal); I48.91 Unspecified atrial fibrillation; J98.11 Atelectasis; Z79.899 Other long term (current) drug therapy
CPT/HCPCS: 36415; 71046; 80053; 85025; 99283; A9270-GY; J7512